=== PATIENT | female | born 1990 | race Caucasian/White ===

== ENCOUNTER 2019-10-08 10:59 | Outpatient (CLI) | payer OTHER, SELFPAY ==
--- NOTE | ~2019-10-08 | US_ITS ---
EXAMINATION: US OB <=14 wk fetus w TV DATE: 10/08/2019 11:58 INDICATION: Bleeding during first trimester . TECHNIQUE: Real-time pelvic ultrasound utilizing both a transvaginal and transabdominal probe was pe rformed. The interpreting radiologist was not present for the study. COMPARISON: None. FINDINGS: The uterus measures 8.6 x 6.6 x 7.9 cm. There is an intrauterine gestational sac. A yolk sac and fet al pole are identified. The crown rump length measures 3.4 cm, which correlates with an estimated ges tational age of 10 weeks and 2 days. No evident motion on cine grayscale imaging or by color or M-mode Doppler consistent with demise. The right ovary measures 1.7 x 2.4 x 1.4 cm. The left ovary measures 3.2 x 2.6 x 2.5 cm. Simple appea ring anechoic 2.1 cm left ovarian cyst. Normal vascular flow with arterial and venous waveforms at evgeny th ovaries on color Doppler. There is no free fluid in the pelvis. IMPRESSION: 1. Single fetus with crown-rump length of 3.4 cm with no motion on grayscale or color Doppler i maging consistent with demise. 2. Gestational age by ultrasound of 10 weeks 2 day(s) +/- 6 day(s). Reviewed, dictated and finalized at location A. CLOSURE CLERK IMPRESSION: 1. Single fetus with crown-rump length of 3.4 cm with no motion on graysc dave or color Doppler imaging consistent with demise. 2. Gestational age by ultrasound of 10 weeks 2 day(s) +/- 6 day(s).
== END 2019-10-08 11:00 | disposition home or self-care (01) ==
LOC: ANHIMG 11:03
PROVIDERS: Visit Provider Student in an Organized Health Care Education/Training Program
DX: O26.851 Spotting complicating pregnancy, first trimester (principal); Z3A.10 10 weeks gestation of pregnancy
CPT/HCPCS: 76801; 76817

== ENCOUNTER 2019-10-14 01:10 | Day surgery (SDC) | payer OTHER, SELFPAY ==
[2019-10-11 13:20] VITALS: BMI 29.4
[2019-10-14 08:15] VITALS: BP 142/95; PULSE 82; RESP 16; TEMP 36.4; O2SAT 100
--- NOTE | 2019-10-14 08:45 | ECG_ITS ---
Measurements Intervals [place] Rate: 71 P: 30 CO: 168 QRS: 21 QRSD: 97 T: 29 QT: 338 QTc: 368 Interpretive Statements SINUS RHYTHM WITH SINUS ARRHYTHMIA NORMAL ECG Electronically Signed On 10-14-2019 9:47:04 CHILD DEVELOPMENT PROFESSOR by Modesto Venegas D.O.
--- NOTE | 2019-10-14 08:52 | PM.HPGS ---
History of Present Illness History of Present Illness Consent: Risks, benefits, and alternatives have been discussed and questions answered. Patient agrees to proceed with procedure. Chief complaint: Missed Ab Narrative: Nohemi Call is a 29 year old female who presents for suction D&C for spontaneous AB. Pt presented to NOB appointment and we were unable to identify FHT by bedside doppler. She was sent for pelvic US which confirmed intrauterine with no cardiac activity. IUP measured approximately 10w size. She denies any vaginal bleeding or cramping. Review of Systems Review of Systems: All systems reviewed & are unremarkable except as noted in HPI and below Meds Home Medications and Allergies Home Medications Medication Instructions Recorded Confirmed Type nifedipine 60 mg PO DAILY 10/11/19 10/11/19 History Allergies Allergy/AdvReac Type Severity Reaction Status Date / Time No Known Allergies Allergy Unverified 10/11/19 13:20 Exam Const: General: comfortable and no acute distress Resp: Effort & Inspection: normal respiratory effort Auscultation: clear to auscultation bilaterally Cardio: Rate: regular rate Rhythm: regular rhythm GI: Inspection: non-distended GI Palp: Yes Soft to palpation, No Tenderness to palpation present (GI) and No Guarding due to palpation present (GI) Auscultation: normal bowel sounds : External Female Exam: normal external appearance Speculum Exam - Vagina: normal appearance of the vagina Speculum Exam - Cervix: normal appearance of the cervix, Cervical os closed, Abnormal cervical discharge present and nontender Bimanual exam- vagina & uterus: normal bimanual exam and non-tender Bimanual Exam- Adnexa, other: normal adnexae OB/external & speculum: no bleeding Skin: General skin exam: normal color Neuro: General: gait normal Speech: normal speech Extrem: General: normal to inspection Psych: Mental Status: mental status grossly normal Affect: normal affect Assessment and Plan Assessment and plan (1) Spontaneous : Code(s): O03.9 - Complete or unspecified spontaneous without complication Status: Acute Assessment and Plan: demise diagnosed by pelvic US IUP measuring 10w discussed management options with patient including but not limited to, expectant vs medical vs surgical management pt opted for surgical management, risks and benefits discussed Rh + will plan for suction D&C
[2019-10-14] MEDS: LACTATED RINGERS 1,000 ML 30 ML IV CONT (09:05)
--- NOTE | 2019-10-14 09:11 | WPDANESEPPF ---
Anes - Initial Pre Proc Eval Procedure: Operation Date: 10/14/19 10:15 Proposed Procedures p Suction Dilation and Curettage - Hilton Jorge MD Date/Time: 10/14/19 09:11 Surgeon: Hilton Jorge MD Pre Op Diagnosis: Missed Ab Patient Data Age: 29 Gender: F Height: 5 ft 7 in Weight: 85.28 kg Allergies Allergy/AdvReac Type Severity Reaction Status Date / Time No Known Allergies Allergy Unverified 10/11/19 13:20 Home Medications Medication Instructions Recorded Confirmed Type nifedipine 60 mg PO DAILY 10/11/19 10/11/19 History Patient hx anesthesia problems: none Family hx anesthesia problems: none [facility] Past Medical History Medical History (Updated 10/14/19 @ 09:11 by Brandon Antonio MD) HTN (hypertension) Surgical History Surgical History (Updated 10/14/19 @ 09:11 by Brandon Antonio MD) Hx of tonsillectomy Anes - Eval Final PreProcedure Day of Procedure 10/14/19 09:11 Patient weight: obese Heart: regular rate and rhythm Lungs: clear to auscultation Airway: Mallampati scale class II Neurological: alert and oriented Last oral intake: >/= 8 hours ASA classification: II Emergent: no Anesthetic plan: proceed Anesthesia type and monitoring: general GIVS and standard monitoring Informed Consent: The patient's anesthetic plan and its attendant risks and benefits were discussed with the patient/family/POA. Questions were solicited and answers provided to the satisfaction of the patient/family/POA.
[2019-10-14] MEDS: IBUPROFEN IV 800 MG/200 ML 800 MG/200 ML BAG 400 MG IVPB (10:03)
[2019-10-14 10:22] VITALS: BP 112/73; PULSE 85; RESP 18; O2SAT 100
--- NOTE | 2019-10-14 10:32 | P.OP_ITS ---
Procedure Note - Detailed Date of procedure: 10/14/19 Pre-op diagnosis: Missed Ab Post-op diagnosis: same Procedure performed: Suction dilation and curettage Description of procedure: Antibiotics: Doxycycline Findings: uterus equal to dates, cervix not dilated, intrauterine MAB Complications: none Specimens: endometrial contents- products of conception EBL: 150 mL Indications: Patients was found to have an intrauterine MAB on pelvic US. After one week of expectant management the patient had not passed and POC. She elected for surgical management via Suction D&C. Procedure: The patient was taken to the operating room after a missed had been noted on on transvaginal ultrasound. The risks, benefits and alternatives of the procedure were reviewed with the patient and informed consent was obtained. The patient was jose en to the OR and anesthesia was noted to be adequate. The patient was placed in the dorsolithotomy position. Pelvic exam was performed with findings noted above. The patient was prepped and draped in the usual sterile fashion. Rae retractors were placed anteriorly and posteriorly in the vagina and the cervix was grasped with an Tenaculum clamp. A pericervical block was performed with 1% lidocaine. The cervix was dilated further to allow for passage of a 8mm suction curette. The 8mm suction curette was gently advanced to the fundus, suction was activated, and the tip was rotated while being withdrawn to clear the uterus of products. This suction process was repeated 4 additional times due to the quantity of material in the uterus. The sharp curette was introduced and advanced to the fundus to remove any remaining products. The suction curette was reintroduced one final time to ensure all products had been removed. The Tenaculum clamp was removed. Good hemostasis was noted. Instrument, sponge, and sharp counts were correct. Patient tolerated the procedure well and was taken to the recovery room in stable condition. Surgeon: Hilton Jorge MD
[2019-10-14 10:50] VITALS: BP 120/77; PULSE 64; RESP 14
[2019-10-14] MEDS: DOXYCYCLINE HYCLATE 100 MG TABLET 200 MG PO (11:10)
[2019-10-14 11:20] VITALS: BP 120/76; PULSE 65; RESP 14
== END 2019-10-14 11:27 | disposition home or self-care (01) ==
PROVIDERS: Visit Provider Student in an Organized Health Care Education/Training Program
PROC: (CPT 59820; principal; 2019-10-14 10:15)
DX: O02.1 Missed abortion (principal); I10 Essential (primary) hypertension; E66.9 Obesity, unspecified; Z68.29 Body mass index [BMI] 29.0-29.9, adult
CPT/HCPCS: 59820; 88305; 93005; A9270; J1100; J1741; J2250; J2405; J2704; J3010; J7120

== ENCOUNTER 2020-07-26 10:09 | Emergency (ER) | payer OTHER, SELFPAY ==
--- NOTE | ~2020-07-26 | XR_ITS ---
XR ankle RT min 3V 07/26/2020 10:44 INDICATION: Right ankle pain PROCEDURE: 4 views right ankle COMPARISON: No prior studies for comparison. FINDINGS: Fracture, dislocation or subluxation is not identified. There is a bone island in the dista l aspect of the tibia. The soft tissues appear within normal limits. No foreign bodies are identifie d. IMPRESSION: 1: NO ACUTE BONE OR JOINT ABNORMALITY IDENTIFIED. Reviewed, dictated and finalized at location A. OGICS SPECIALIST
[2020-07-26 10:20] VITALS: BP 152/97; PULSE 70; RESP 18; TEMP 36.4; O2SAT 100
--- NOTE | 2020-07-26 10:37 | ED.GENADULT ---
HPI - General Adult General Chief complaint: Extremity Injury, Lower Stated complaint: ankle injury Time Seen by Provider: 07/26/20 10:27 Source: patient History of Present Illness HPI narrative: Patient is a 30 y/o female complaining of right ankle pain since yesterday. She states that she was working on a project with her and a wheelbarrow fell on her right ankle. She rates her pain as 8/10. Her pain is throbbing with no radiation. Walking makes the pain worse. Related Data Home Medications Medication Instructions Recorded Confirmed nifedipine 60 mg PO DAILY 10/11/19 10/14/19 Allergies Allergy/AdvReac Type Severity Reaction Status Date / Time No Known Allergies Allergy Unverified 10/14/19 09:21 Review of Systems Constitutional: Constitutional: Denies chills, Denies fever(s), Denies headache(s) and Denies weakness Eyes: Eyes: Denies blurry vision ENT: Denies headache(s) and Denies neck pain Cardiovascular: Cardiovascular: Denies chest pain and Denies dyspnea Respiratory: Respiratory: Denies cough and Denies dyspnea Gastrointestinal: Gastrointestinal: Denies abdominal pain, Denies diarrhea, Denies nausea and Denies vomiting Genitourinary: Genitourinary: Denies hematuria and Denies dysuria Musculoskeletal: Musculoskeletal: Denies back pain, Reports arthralgias (right ankle pain) and Denies neck pain Neurologic: Denies headache(s) and Denies weakness PMFSH Past Medical History Medical History HTN (hypertension) Surgical History Surgical History Hx of tonsillectomy Exam Const: General: no acute distress and well developed Orientation/consciousness: oriented to person, oriented to place, oriented to time and patient oriented x3 HENMT: Head: normocephalic Ears: external ears normal General nose exam: Normal external nose present Eyes: General: appearance normal, both eyes and all related structures Conjunctivae: conjunctivae normal Neck: Neck: normal visual inspection and full ROM Chest: Chest palpation & inspection: normal inspection of the chest and no tenderness Resp: Effort & Inspection: normal respiratory effort Auscultation: clear to auscultation bilaterally Cardio: Rate: regular rate Rhythm: regular rhythm GI: GI Palp: No abdominal tenderness and Yes Soft to palpation Skin: General skin exam: normal color and turgor normal Trauma: abrasion (lateral aspect of right ankle) Neuro: General: oriented to person, oriented to place, oriented to time and patient oriented x3 Cognition (Neuro): normal cognition Extrem: General: normal to inspection, full ROM and no pedal edema Right lower extremity: ankle Details: tenderness (right lateral maleolus) Psych: Appearance: grossly normal Mental Status: mental status grossly normal Affect: normal affect Course Vital Signs Vital signs: Vital Signs Temperature 36.4 C 07/26/20 10:20 Pulse Rate 70 07/26/20 10:20 Respiratory Rate 18 07/26/20 10:20 Blood Pressure 152/97 H 07/26/20 10:20 Pulse Oximetry 100 07/26/20 10:20 Temperature 36.4 C 07/26/20 10:20 Pulse Rate 70 07/26/20 10:20 Respiratory Rate 18 07/26/20 10:20 Blood Pressure 152/97 H 07/26/20 10:20 Pulse Oximetry 100 07/26/20 10:20 Medical Decision Making Vital Signs Vital Signs: Vital Signs Temperature 36.4 C 07/26/20 10:20 Pulse Rate 70 07/26/20 10:20 Respiratory Rate 18 07/26/20 10:20 Blood Pressure 152/97 H 07/26/20 10:20 Pulse Oximetry 100 07/26/20 10:20 Temperature 36.4 C 07/26/20 10:20 Pulse Rate 70 07/26/20 10:20 Respiratory Rate 18 07/26/20 10:20 Blood Pressure 152/97 H 07/26/20 10:20 Pulse Oximetry 100 07/26/20 10:20 Discharge Plan Discharge Clinical Impression: Contusion of ankle, right Qualifiers: Encounter type: initial encounter Qualified Code(s): S90.01XA - Contusion of
[2020-07-26] MEDS: TETANUS,DIPHTHERIA,AC PERTUSSIS ADULT (0.5 ML) BOOSTRIX IM (10:51)
== END 2020-07-26 11:33 | disposition home or self-care (01) ==
PROVIDERS: Emergency Provider Emergency Medicine; PCP Nurse Practitioner Family
DX: S90.01XA Contusion of right ankle, initial encounter (principal); S90.511A Abrasion, right ankle, initial encounter; Z23 Encounter for immunization; W20.8XXA Other cause of strike by thrown, projected or falling object, initial encounter
CPT/HCPCS: 73140; 73610; 90471; 90715; 99283

== ENCOUNTER 2021-09-25 11:05 | Emergency (ER) | payer OTHER, SELFPAY ==
--- NOTE | ~2021-09-25 | US_ITS ---
EXAMINATION: US OB <=14 wk fetus w TV DATE: 09/25/2021 12:22 INDICATION: Vaginal bleeding. . TECHNIQUE: Real-time transabdominal and transvaginal obstetric ultrasound. FINDINGS: No prior studies for comparison. The uterus measures 9.1 x 5.4 x 6.1 cm. There is an intrauterine gestational sac, with pole jorge alberto ntified. There is a small subchorionic hemorrhage measuring 5 x 3 x 3 mm The crown rump length measur es 0.36 cm, which correlates with a estimated gestational age of 6 weeks 0 days. heart tones are identified measuring 95 bpm. There is a corpus luteal cyst of the right ovary measuring 2.5 cm. IMPRESSION: 1. SL IUP with an EGA of 6 weeks, 0 days (EDC by current ultrasound of 05/21/2022). 2: Small subchorionic hemorrhage. 3: Small corpus luteal cyst of the right ovary measuring 2.5 cm. Reviewed, dictated and finalized at location A. COST ESTIMATOR IMPRESSION: 1. SL IUP with an EGA of 6 weeks, 0 days (EDC by current ultrasound of 05/21/20). 2: Small subchorionic hemorrhage. 3: Small corpus luteal cyst of the right ovary measuring 2.5 cm.
[2021-09-25 11:15] VITALS: BP 152/103; PULSE 110; RESP 16; TEMP 36.4; O2SAT 99
--- NOTE | 2021-09-25 11:43 | ED.PREGNANCY ---
HPI - General Chief complaint: Vaginal Bleeding <JENNI Howard Last Filed: 09/25/21 14:42> Stated complaint: vag bleed <JENNI Howard Last Filed: 09/25/21 14:42> Time Seen by Provider: 09/25/21 11:19 <JENNI Howard Last Filed: 09/25/21 14:42> Source: patient <JENNI Howard Last Filed: 09/25/21 14:42> Mode of arrival: ambulatory <JENNI Howard Last Filed: 09/25/21 14:42> Limitations: no limitations <JENNI Howard Last Filed: 09/25/21 14:42> History of Present Illness HPI Narrative: This is a 31-year-old G3, P1 about 8 weeks by LMP that presents to the emergency department for vaginal spotting. Reports she started to have some cramping and noted a little spotting today. She has history of miscarriage which concerned her and prompted her to be seen. She also has history of hypertension and has been on losartan for this. She has not been taking this medication since she found out she was . She has also been having a lot of trouble with nausea and vomiting this . Denies fever or dysuria. <Lynnette Haynes PA-C - Last Filed: 09/25/21 14:42> Related Data Home medications: Home Medications Medication Instructions Recorded Confirmed ondansetron HCl [Zofran] 09/25/21 <JENNI Howard Last Filed: 09/25/21 14:42> Allergies/Adverse reactions: Allergies Allergy/AdvReac Type Severity Reaction Status Date / Time No Known Allergies Allergy Verified 09/25/21 11:28 <JENNI Howard Last Filed: 09/25/21 14:42> Review of Systems Review of Systems: CONSTITUTIONAL: Denies fever GASTROINTESTINAL: Reports pelvic cramping, nausea, vomiting GENITOURINARY: Denies dysuria <JENNI Howard Last Filed: 09/25/21 14:42> All systems reviewed & are unremarkable except as noted in HPI and below <Lynnette Haynes PA-C - Last Filed: 09/25/21 14:42> [facility] Past Medical History Medical History: Medical History HTN (hypertension) <Lynnette Haynes PA-C - Last Filed: 09/25/21 14:42> Surgical History Surgical History: Surgical History Hx of tonsillectomy <Lynnette Haynes PA-C - Last Filed: 09/25/21 14:42> Social History Social History: Social History (Updated 09/25/21 @ 11:46 by Lynnette Haynes PA-C) Smoking status: Never smoker <Lynnette Haynes PA-C - Last Filed: 09/25/21 14:42> Exam Narrative: GENERAL: Well-appearing, well-nourished, and in no acute distress. HEAD: Normocephalic, atraumatic. EYES: EOMI. CHEST: Clear to auscultation. No respiratory distress. No wheezes rales or rhonchi HEART: Regular rate and rhythm. No murmur heard. Normal peripheral pulses. ABDOMEN: Soft, nontender, nondistended, normal active bowel sounds. EXTREMITIES: Normal range of motion. No edema. SKIN: Warm, dry, no rash. NEURO: No focal deficits. Alert and oriented x3. PSYCH: Normal mood and affect PELVIC: Normal external genitalia. No bleeding noted on speculum exam. Normal appearing cervix <Lynnette Haynes PA-C - Last Filed: 09/25/21 14:42> Course ALARM ADJUSTER/PA Physician Supervision I did not see this patient nor was the care plan discussed with me. I was available for evaluation and consultation, I agree with the documentation <Huber Bedolla MD - Last Filed: 09/25/21 18:19> Consultations Consultation #1: Spoke with Dr. Burden about patient and workup. Patient will be re-started on Procardia. Monitor blood pressure at home and follow up in clinic next week. <Lynnette Haynes PA-C - Last Filed: 09/25/21 14:42> Date: 09/25/21 <Lynnette Haynes PA-C - Last Filed: 09/25/21 14:42> Time: 14:33 <Lynnette Haynes PA-C - Last Filed: 09/25/21 14:42> Vital Signs Vital signs: Vital Signs Temperature 36.4 C 09/25/21 11:15 Pulse Rate 110
[2021-09-25 11:48] LABS: Basophils Percent Auto 0.2 % (0.2-1.2); Eosinophils Percent Auto 0.3 % (0-4.4); Hematocrit 39.7 % (37.0-47.0); Hemoglobin 12.7 g/dL (12.0-15.0); Immature Granulocyte Absolute 0.02 K/mm3 (0.00-0.031); Immature Granulocyte Percent A 0.2 % (0-0.5); Lymphocytes Absolute Auto 1.78 K/mm3 (0.9-3.2); Lymphocytes Percent Auto 19.2 % (18.3-44.2); Mean Corpuscular Hemoglobin 28.3 pg (26-34); Mean Corpuscular Volume 88.6 fl (80-100); Mean Platelet Volume 9.6 fl (7.4-10.4); Monocytes Absolute Auto 0.6 K/mm3 (0.1-0.6); Monocytes Percent Auto 6.3 % (2.6-8.5); Neutrophils Absolute Auto 6.8 K/mm3 (1.3-6.7); Neutrophils Percent Auto 73.8 % (45.5-73.1); Platelet Count Result 271 k/mm3 (150-375); Red Blood Count 4.48 M/mm3 (4.2-5.4); Red Cell Distribution Width 12.9 % (11.5-14.5); White Blood Count 9.3 K/mm3 (4.5-10.0)
[2021-09-25 12:04] LABS: Alanine Aminotransferase 13 U/L (4-35); Albumin Level 5.1 g/dL (3.5-5.1); Alkaline Phosphatase 58 U/L (38-126); Anion Gap 10 mmol/L (8-16); Aspartate Amino Transferase 22 U/L (14-36); Bilirubin,Total 0.6 mg/dL (0.2-1.3); Blood Urea Nitrogen 11 mg/dL (7-17); Calcium 9.7 mg/dL (8.4-10.2); Carbon Dioxide 23 mmol/L (22-30); Chloride 102 mmol/L (98-107); Estimated CRCL calculation 167 ml/min; Estimated Glomerular Filt Rate > 60; Glucose 90 mg/dL (65-110); Lipase 55 U/L (23-300); Potassium 3.6 mmol/L (3.4-5.0); Sodium 135 mmol/L (137-145)
[2021-09-25 12:16] LABS: Add Urine Microscopic? YES; Appearance Urine Clear (Clear); Bacteria Urine Trace /hpf; Bilirubin Urine Negative (Negative); Blood Urine 2+ (Negative); Color Urine Yellow (Yellow); Glucose Urine UA Negative (Negative); Ketones Urine 1+ mg/dL (Negative); Leukocyte Esterase Ur 2+ LEU/UL (Negative); Mucus Urine Heavy /lpf; Nitrate Urine Negative (Negative); Protein Urine 1+ mg/dL (Negative); Squamous Epithelial Cell Urine Many /hpf (Few); WBC Urine 16-20 /hpf
[2021-09-25 12:17] LABS: Specific Grav Ur 1.032 (1.001-1.035)
[2021-09-25] MEDS: SODIUM CHLORIDE 0.9% IV 1,000 ML 999 ML IV CONT (12:17)
[2021-09-25 13:30] VITALS: BP 153/106; PULSE 85; RESP 16; O2SAT 100
[2021-09-25] MEDS: ONDANSETRON INJ 4 MG/2 ML VIAL IV PUSH (13:35)
== END 2021-09-25 14:45 | disposition home or self-care (01) ==
PROVIDERS: Physician Assistant; Emergency Provider Emergency Medicine; PCP Nurse Practitioner Family
DX: O46.8X1 Other antepartum hemorrhage, first trimester (principal); O21.9 Vomiting of pregnancy, unspecified; O34.81 Maternal care for other abnormalities of pelvic organs, first trimester; N83.11 Corpus luteum cyst of right ovary; O10.911 Unspecified pre-existing hypertension complicating pregnancy, first trimester; Z3A.01 Less than 8 weeks gestation of pregnancy
CPT/HCPCS: 36415; 76801; 76817; 80053; 81001; 81025; 83690; 84702; 85025; 85461; 87086; 87088; 96361; 96374; 99284; J2405; J7030

== ENCOUNTER 2021-09-28 16:52 | Emergency (ER) | payer OTHER, SELFPAY ==
[2021-09-28 16:59] VITALS: BP 154/93; PULSE 88; RESP 14; TEMP 36.9; O2SAT 100
[2021-09-28 18:01] LABS: Basophils Percent Auto 0.3 % (0.2-1.2); Eosinophils Percent Auto 0.4 % (0-4.4); Hematocrit 40.8 % (37.0-47.0); Hemoglobin 13.2 g/dL (12.0-15.0); Immature Granulocyte Absolute 0.04 K/mm3 (0.00-0.031); Immature Granulocyte Percent A 0.4 % (0-0.5); Lymphocytes Absolute Auto 2.13 K/mm3 (0.9-3.2); Lymphocytes Percent Auto 19.5 % (18.3-44.2); Mean Corpuscular HGB Conc 32.4 g/dl (32-36); Mean Corpuscular Hemoglobin 28.9 pg (26-34); Mean Corpuscular Volume 89.3 fl (80-100); Mean Platelet Volume 9.5 fl (7.4-10.4); Monocytes Absolute Auto 0.8 K/mm3 (0.1-0.6); Monocytes Percent Auto 7.2 % (2.6-8.5); Neutrophils Absolute Auto 7.9 K/mm3 (1.3-6.7); Neutrophils Percent Auto 72.2 % (45.5-73.1); Platelet Count Result 297 k/mm3 (150-375); Red Blood Count 4.57 M/mm3 (4.2-5.4); Red Cell Distribution Width 12.8 % (11.5-14.5); White Blood Count 10.9 K/mm3 (4.5-10.0)
[2021-09-28 18:11] LABS: Alanine Aminotransferase 12 U/L (4-35); Albumin Level 5.1 g/dL (3.5-5.1); Alkaline Phosphatase 62 U/L (38-126); Anion Gap 14 mmol/L (8-16); Aspartate Amino Transferase 23 U/L (14-36); Bilirubin,Total 0.5 mg/dL (0.2-1.3); Blood Urea Nitrogen 8 mg/dL (7-17); Calcium 9.9 mg/dL (8.4-10.2); Carbon Dioxide 24 mmol/L (22-30); Chloride 98 mmol/L (98-107); Estimated CRCL calculation 165 ml/min; Estimated Glomerular Filt Rate > 60; Glucose 96 mg/dL (65-110); Lipase 39 U/L (23-300); Potassium 3.8 mmol/L (3.4-5.0); Sodium 136 mmol/L (137-145)
[2021-09-28 18:38] LABS: Add Urine Microscopic? YES; Appearance Urine Clear (Clear); Bacteria Urine Trace /hpf; Bilirubin Urine Negative (Negative); Blood Urine Negative (Negative); Color Urine Yellow (Yellow); Glucose Urine UA Negative (Negative); Ketones Urine 1+ mg/dL (Negative); Leukocyte Esterase Ur 1+ LEU/UL (Negative); Mucus Urine Heavy /lpf; Nitrate Urine Negative (Negative); Protein Urine 1+ mg/dL (Negative); Specific Grav Ur 1.023 (1.001-1.035); Squamous Epithelial Cell Urine Many /hpf (Few)
--- NOTE | 2021-09-28 19:37 | ED.GENADULT ---
HPI - General Adult General Chief complaint: Nausea/Vomiting/Diarrhea Stated complaint: 6 weeks /vomiting Time Seen by Provider: 09/28/21 17:44 Source: patient Mode of arrival: ambulatory Limitations: no limitations History of Present Illness HPI narrative: Patient presents for evaluation of nausea and vomiting. She is currently approximately 6 weeks gestation. She is already had a confirmed IUP per ultrasound during this . G3, P1. She was seen here on 09/25/2021 for vaginal spotting. Her IUP was detected on ultrasound during that ER stay. Also showed a subchorionic hemorrhage and right-sided ovarian cyst. She states that her spotting has resolved since her visit here. She has no abdominal pain or cramping. Blood type AB+. She states she has been taking Zofran, Reglan, B6, Unisom without improvement in her symptoms. She has not had her first OBGYN visit during this . Of note she tested positive for Covid on 08/22/2021. She did receive both doses of her COVID vaccine but did not receive the booster. She has not received a flu vaccination this year. No recent sick contacts to her knowledge. No EtOH or marijuana use. She is a chronic clear vaginal discharge which is unchanged. She did have a pelvic exam performed during her last ER visit here. She is in a sexual monogamous relationship with her . He is asymptomatic. No fever, chills, urinary symptoms. Documentation from ER stay on 09/25/2021 indicated that questionable UTI on urinalysis, although likely contaminated. Plan was to start her on Macrobid. She dictates she did not know she had that prescription available for her. She denies any urinary symptoms. Of note she has a history of hypertension is typically on losartan. However treating provider that saw her here on 09/25/2021 contacted FLIGHT SIMULATOR TEACHER, Dr. Burden, who changed her to Procardia. She states she has not been able to keep the medication down. Bowel pattern is unchanged. Last bowel movement was this morning, solid in consistency, without the presence of blood or mucus in the stool. Related Data Allergies Allergy/AdvReac Type Severity Reaction Status Date / Time No Known Allergies Allergy Verified 09/28/21 17:46 Review of Systems Review of Systems: CONSTITUTIONAL: Denies fever, chills, or sweats. EYES: Denies visual changes, redness, or discharge. ENT: Denies rhinorrhea, congestion, sore throat, or otalgia. CARDIOVASCULAR: Denies chest pain, palpitations, or edema. RESPIRATORY: Denies cough or dyspnea. GASTROINTESTINAL: Reports nausea and vomiting. Denies abdominal pain, diarrhea, constipation. GENITOURINARY: Denies dysuria or hematuria. SKIN: Denies rash or itching. MUSCULOSKELETAL: Denies back pain, joint pain, or myalgia. NEUROLOGIC: Denies headache, numbness, dizziness, or weakness. PSYCHIATRIC: Denies anxiety or depression. [facility] Past Medical History Medical History HTN (hypertension) Surgical History Surgical History Hx of tonsillectomy Family History Family History Mother Hypertension Thyroid cancer Social History Social History Smoking status: Former smoker Substance use: never Living arrangements: with family Gender identity (if verbalized by the patient): Female Sexual Orientation (if Verbalized by the Patient): Straight or Heterosexual Spiritual care concerns: No Exam Narrative: GENERAL: Well-appearing, well-nourished, and in no acute distress. HEAD: Normocephalic, atraumatic. EYES: PERRLA and EOMI. ENT: Nares clear, no rhinorrhea or epistaxis. Mucous membranes moist. Oropharynx without tonsillar hypertrophy exudate or other lesions. Bilateral TMs pearly gant nonbulging NECK: Supple. No adenopathy or m
[2021-09-28 19:38] VITALS: BP 151/91; PULSE 88; RESP 18; O2SAT 100
[2021-09-28] MEDS: LACTATED RINGERS 1,000 ML 999 ML IV CONT ×2 (19:39→20:53)
[2021-09-28] MEDS: ONDANSETRON INJ 4 MG/2 ML VIAL IV PUSH (19:39)
[2021-09-28] MEDS: FAMOTIDINE 20 MG/2 ML VIAL IV PUSH (19:45)
[2021-09-28 20:23] LABS: SARS-CoV-2 RNA PCR Positive
[2021-09-28] MEDS: diphenhydrAMINE HCl INJ 50 MG/ML VIAL 25 MG IV PUSH (20:53)
[2021-09-28] MEDS: METOCLOPRAMIDE HCL INJ 10 MG/2 ML VIAL IV PUSH (20:53)
== END 2021-09-28 22:01 | disposition home or self-care (01) ==
PROVIDERS: Emergency Medicine; Emergency Provider Nurse Practitioner; PCP Nurse Practitioner Family
DX: O98.511 Other viral diseases complicating pregnancy, first trimester (principal); U07.1 COVID-19; O21.9 Vomiting of pregnancy, unspecified; O10.911 Unspecified pre-existing hypertension complicating pregnancy, first trimester; Z87.891 Personal history of nicotine dependence; Z86.16 Personal history of COVID-19; Z3A.01 Less than 8 weeks gestation of pregnancy
CPT/HCPCS: 36415; 80053; 81001; 83690; 85025; 87086; 87804; 96361; 96374; 96375; 99284; C9803; J1200; J2405; J2765; J7120; U0003; U0005

== ENCOUNTER 2021-10-01 11:56 | Observation (INO) | payer OTHER, SELFPAY ==
--- NOTE | ~2021-10-01 | US_ITS ---
EXAMINATION: US OB <= 14 weeks fetus DATE: 10/01/2021 16:35 INDICATION: Uncertain dates. Nausea and vomiting. TECHNIQUE: Real-time transabdominal pelvic ultrasound was performed. COMPARISON: Ultrasound 09/25/2021 FINDINGS: The uterus measures 8.8 x 6.2 x 6.4 cm. There is an intrauterine gestational sac. A yolk sac is ident ified. The crown rump length measures 7 mm, which correlates with an estimated gestational age of 6 weeks and 4 day(s) (+/-) 4 day(s). heart motion is identified measuring 131 beats per min conrad (bpm) by M-mode Doppler. The right ovary measures 2.6 x 2.4 x 1.6 cm. There is a small subchorion ic hematoma. The left ovary measures 2.0 x 1.3 x 1.6 cm. There is no free fluid in the pelvis. IMPRESSION: 1. Single living intrauterine gestation with estimated date of delivery of 05/21/2022 based on the ul trasound from 09/25/2021. 2. Small subchorionic hematoma. Reviewed, dictated and finalized at location E. PRODUCTION ARTIST IMPRESSION: 1. Single living intrauterine gestation with estimated date of delivery of 05/21/2022 based on the ultrasound from 09/25/2021. 2. Small subchorionic hematoma.
[2021-10-01 13:25] LABS: Basophils Percent Auto 0.2 % (0.2-1.2); Eosinophils Percent Auto 0.2 % (0-4.4); Hemoglobin 12.9 g/dL (12.0-15.0); Immature Granulocyte Absolute 0.06 K/mm3 (0.00-0.031); Immature Granulocyte Percent A 0.5 % (0-0.5); Lymphocytes Absolute Auto 1.84 K/mm3 (0.9-3.2); Lymphocytes Percent Auto 13.8 % (18.3-44.2); Mean Corpuscular HGB Conc 33.9 g/dl (32-36); Mean Corpuscular Hemoglobin 29.4 pg (26-34); Mean Corpuscular Volume 86.6 fl (80-100); Mean Platelet Volume 9.4 fl (7.4-10.4); Monocytes Absolute Auto 0.9 K/mm3 (0.1-0.6); Monocytes Percent Auto 6.8 % (2.6-8.5); Neutrophils Absolute Auto 10.5 K/mm3 (1.3-6.7); Neutrophils Percent Auto 78.5 % (45.5-73.1); Platelet Count Result 271 k/mm3 (150-375); Red Blood Count 4.39 M/mm3 (4.2-5.4); Red Cell Distribution Width 12.6 % (11.5-14.5); White Blood Count 13.3 K/mm3 (4.5-10.0)
[2021-10-01] MEDS: ONDANSETRON INJ 4 MG/2 ML VIAL IV PUSH ×2 (13:30→19:23)
[2021-10-01 13:31] LABS: Add Urine Microscopic? YES; Appearance Urine Cloudy (Clear); Bilirubin Urine Negative (Negative); Blood Urine Negative (Negative); Color Urine Yellow (Yellow); Glucose Urine UA Negative (Negative); Ketones Urine 2+ mg/dL (Negative); Leukocyte Esterase Ur 2+ LEU/UL (Negative); Mucus Urine Heavy /lpf; Nitrate Urine Negative (Negative); Protein Urine 2+ mg/dL (Negative); Squamous Epithelial Cell Urine Many /hpf (Few); WBC Urine 16-20 /hpf
[2021-10-01 13:35] LABS: Specific Grav Ur 1.033 (1.001-1.035)
[2021-10-01 13:36] LABS: Alanine Aminotransferase 13 U/L (4-35); Alkaline Phosphatase 65 U/L (38-126); Anion Gap 14 mmol/L (8-16); Aspartate Amino Transferase 21 U/L (14-36); Bilirubin,Total 0.5 mg/dL (0.2-1.3); Blood Urea Nitrogen 10 mg/dL (7-17); Carbon Dioxide 20 mmol/L (22-30); Chloride 100 mmol/L (98-107); Estimated Glomerular Filt Rate > 60; Glucose 81 mg/dL (65-110); Potassium 3.8 mmol/L (3.4-5.0); Sodium 134 mmol/L (137-145)
[2021-10-01] MEDS: FAMOTIDINE 20 MG/2 ML VIAL IV PUSH (13:36)
[2021-10-01] MEDS: DEXTROSE 5%/0.45% SOD CHL 1,000 ML 150 ML IV CONT (13:38)
[2021-10-01 13:46] VITALS: BP 134/72; PULSE 89
[2021-10-01 14:01] VITALS: BP 124/68; PULSE 88
[2021-10-01 14:07] LABS: Thyroid Stimulating Hormone 0.089 uIU/mL (0.465-4.680)
[2021-10-01 14:16] VITALS: BP 129/76; PULSE 81
--- NOTE | 2021-10-01 15:50 | PC.NURSE ---
Maty Bach CNM in department. Updated on pt's status and lab results. New orders received.
--- NOTE | 2021-10-01 17:19 | OBADM ---
This patient, Nohemi Call, admitted to the OB room OB Post 113 for observation. Patient/family oriented to hospital policies and general routines including ID bracelet, bed and alarms, visiting hours, pain management, procedures, bathroom and other care routines, personal items, smoking policy, room service/diet, and visiting hours. Patient/Family are encouraged to report perceived risks to care and to ask questions if they do not understand what they are told or what they should do.
[2021-10-01 17:48] LABS: Total Triiodothyronine (T3) 1.21 NG/ML (0.97-1.69)
[2021-10-01] MEDS: LACTATED RINGERS 1,000 ML 125 ML IV CONT (17:49)
[2021-10-01 17:52] VITALS: BP 127/71; PULSE 76; PULSE 82; O2SAT 98; BMI 36.3
[2021-10-01 18:02] VITALS: TEMP 37.4
[2021-10-01 18:04] LABS: Free T4 Free Thyroxine 1.27 ng/mL (0.78-2.19)
[2021-10-02] VITALS (52 sets, daily range): BP systolic 108–139; BP diastolic 58–90; PULSE 58–100; RESP 14–18; TEMP 36.6; O2SAT 98–100
[2021-10-02] MEDS: DEXTROSE 5%/0.45% SOD CHL 1,000 ML 150 ML IV CONT (00:34)
[2021-10-02] MEDS: ONDANSETRON INJ 4 MG/2 ML VIAL IV PUSH ×3 (02:35→14:48)
[2021-10-02] MEDS: FAMOTIDINE 20 MG/2 ML VIAL IV PUSH (03:52)
--- NOTE | 2021-10-02 08:27 | PM.IMHP ---
H&P: HPI History of Present Illness Date/Time: 10/02/21 08:27 this patient is a 31-year-old multiparous female who presents for nausea vomiting of . She is about 6 week gestation. She has history of 1st trimester loss and this concerned about the status of the baby. She has severe nausea vomiting. She was admitted and observed and supportive care was administered with antiemetics IV fluids. Laboratory evaluation was normal. She denies any headaches or blurry vision. She denies any chest pain or shortness of breath. She denies any nausea, vomiting, fever, chills. Chief Complaint: Nausea vomiting Review of Systems Review of Systems: All systems reviewed & are unremarkable except as noted in HPI and below Constitutional: Constitutional: Denies chills, Denies fatigue, Denies fever(s) and Denies weakness Eyes: Eyes: Denies blurry vision, Denies change in vision, Denies loss of peripheral vision, Denies loss of vision, Denies other visual disturbances and Denies eye pain ENT: Denies vertigo, Denies dizziness, Denies hearing loss, Denies mouth pain, Denies nasal obstruction, Denies neck mass and Denies neck pain Cardiovascular: Cardiovascular: Denies chest pain, Denies diaphoresis, Denies syncope, Denies leg edema and Denies dyspnea Respiratory: Respiratory: Denies chest congestion, Denies cough, Denies hemoptysis, Denies dyspnea and Denies wheezing Gastrointestinal: Gastrointestinal: Denies abdominal pain, Denies constipation, Denies diarrhea, Denies nausea and Denies vomiting Genitourinary: Genitourinary: Denies hematuria, Denies change in libido, Denies nocturia, Denies genital lesions, Denies flank pain and Denies urinary urgency Musculoskeletal: Musculoskeletal: Denies abnormal gait, Denies back pain, Denies myalgias, Denies arthralgias, Denies joint swelling, Denies muscle weakness and Denies neck pain Integumentary/Breasts: Skin/Breast: Denies swelling, Denies breast pain, Denies breast mass, Denies dry skin, Denies nipple discharge, Denies unusual bruising and Denies jaundice Neurologic: Denies Neuro-related abnormal movements, Denies Abnormal speech present, Denies abnormal gait, Denies behavioral changes, Denies confusion, Denies vertigo, Denies dizziness, Denies syncope, Denies loss of vision, Denies memory loss, Denies convulsions and Denies weakness Psychiatric: Psychiatric: Denies abnormal sleep pattern, Denies behavioral changes, Denies change in libido, Denies confusion, Denies depression, Denies anhedonia and Denies memory loss Endocrine: Endocrine: Reports no additional endocrine complaints, Denies change in libido and Denies fatigue Hematologic/Lymphatic: Hematologic/Lymphatic: Reports no additional hematologic/lymphatic complaints Allergic/Immunologic: Allergic/Immunologic: Reports no additional allergic/immunologic complaints and Denies wheezing PMFSH Past Medical History Medical History HTN (hypertension) Surgical History Surgical History Hx of tonsillectomy Family History Family History Mother Hypertension Thyroid cancer Social History Social History Smoking status: Former smoker Substance use: never Gender identity (if verbalized by the patient): Female Sexual Orientation (if Verbalized by the Patient): Straight or Heterosexual Spiritual care concerns: No Meds Home Medications and Allergies Home Medications Medication Instructions Recorded Confirmed Type nifedipine [Procardia XL] 30 mg PO DAILY 14 Days #14 tablet 09/25/21 10/01/21 Rx ondansetron [Zofran ODT] 8 mg PO Q8H PRN 10/01/21 10/01/21 History pantoprazole [Protonix] 40 mg PO QAM #28 tablet 10/01/21 Rx Allergies Allergy/AdvReac Type Severity Reaction Status Date / Time
--- NOTE | 2021-10-02 10:30 | PC.NURSE ---
8773--Dr. Burden at bedside to discuss plan of care. Discharge plans in place.
--- NOTE | 2021-10-02 14:50 | PC.NURSE ---
1450--pt reports she is feeling good and is ready for discharge.
--- NOTE | 2021-10-02 15:48 | PC.NURSE ---
1520--Pt refuses next dose of Pepcid due to awaiting ride.
== END 2021-10-02 15:25 | disposition home or self-care (01) ==
PROVIDERS: Advanced Practice Midwife; Admitting Provider Obstetrics & Gynecology; PCP Nurse Practitioner Family; Visit Provider Obstetrics & Gynecology
DX: O21.9 Vomiting of pregnancy, unspecified (principal); O16.1 Unspecified maternal hypertension, first trimester; Z3A.01 Less than 8 weeks gestation of pregnancy; Z87.891 Personal history of nicotine dependence; Z79.899 Other long term (current) drug therapy
CPT/HCPCS: 36415; 76801; 80053; 81001; 84439; 84443; 84480; 85025; 87086; 96374; 96375; 96376; G0378; G0379; J2405; J7120

== ENCOUNTER 2021-11-03 12:25 | Emergency (ER) | payer OTHER, SELFPAY ==
[2021-11-03 12:28] VITALS: BP 140/87; PULSE 155; RESP 18; TEMP 36.5; O2SAT 100
[2021-11-03] MEDS: DEXTROSE 5%/LACTATED RINGERS 1,000 ML 150 ML IV CONT (13:03)
[2021-11-03 13:09] LABS: Basophils Percent Auto 0.2 % (0.2-1.2); Eosinophils Absolute Auto 0.1 K/mm3 (0-0.3); Eosinophils Percent Auto 0.4 % (0-4.4); Hematocrit 40.9 % (37.0-47.0); Hemoglobin 14.1 g/dL (12.0-15.0); Immature Granulocyte Absolute 0.05 K/mm3 (0.00-0.031); Immature Granulocyte Percent A 0.4 % (0-0.5); Lymphocytes Absolute Auto 1.91 K/mm3 (0.9-3.2); Lymphocytes Percent Auto 14.1 % (18.3-44.2); Mean Corpuscular HGB Conc 34.5 g/dl (32-36); Mean Corpuscular Hemoglobin 29.6 pg (26-34); Mean Corpuscular Volume 85.9 fl (80-100); Mean Platelet Volume 10.3 fl (7.4-10.4); Monocytes Absolute Auto 1.3 K/mm3 (0.1-0.6); Monocytes Percent Auto 9.3 % (2.6-8.5); Neutrophils Absolute Auto 10.3 K/mm3 (1.3-6.7); Neutrophils Percent Auto 75.6 % (45.5-73.1); Platelet Count Result 290 k/mm3 (150-375); Red Blood Count 4.76 M/mm3 (4.2-5.4); White Blood Count 13.6 K/mm3 (4.5-10.0)
[2021-11-03 13:38] LABS: Alanine Aminotransferase 91 U/L (4-35); Albumin Level 4.8 g/dL (3.5-5.1); Alkaline Phosphatase 71 U/L (38-126); Anion Gap 20 mmol/L (8-16); Aspartate Amino Transferase 75 U/L (14-36); Bilirubin,Total 1.6 mg/dL (0.2-1.3); Blood Urea Nitrogen 9 mg/dL (7-17); Calcium 10.1 mg/dL (8.4-10.2); Carbon Dioxide 16 mmol/L (22-30); Chloride 100 mmol/L (98-107); Estimated CRCL calculation 132 ml/min; Estimated Glomerular Filt Rate > 60; Glucose 111 mg/dL (65-110); Lipase 80 U/L (23-300); Potassium 3.5 mmol/L (3.4-5.0); Sodium 136 mmol/L (137-145)
[2021-11-03 14:30] LABS: Add Urine Microscopic? YES; Appearance Urine Cloudy (Clear); Bilirubin Urine Negative (Negative); Blood Urine Negative (Negative); Color Urine Amber (Yellow); Glucose Urine UA 1+ mg/dL (Negative); Hyaline Casts Urine 20-29 /lpf; Ketones Urine 2+ mg/dL (Negative); Leukocyte Esterase Ur Negative LEU/UL (Negative); Mucus Urine Rare /lpf; Nitrate Urine Negative (Negative); Protein Urine 2+ mg/dL (Negative); Specific Grav Ur 1.023 (1.001-1.035); Squamous Epithelial Cell Urine Many /hpf (Few)
[2021-11-03 14:52] VITALS: BP 113/92; PULSE 96; RESP 16; O2SAT 100
[2021-11-03] MEDS: ONDANSETRON INJ 4 MG/2 ML VIAL IV PUSH (15:47)
[2021-11-03] MEDS: SODIUM CHLORIDE 0.9% IV 1,000 ML 999 ML IV CONT (17:02)
--- NOTE | 2021-11-03 17:23 | ED.GENADULT ---
HPI - General Adult General Chief complaint: Nausea/Vomiting/Diarrhea Stated complaint: vomiting, 11 weeks Time Seen by Provider: 11/03/21 12:43 Source: patient and family Mode of arrival: ambulatory History of Present Illness HPI narrative: 31-year-old 2 para 1 about 11-1/2 weeks of gestation here with complaints of nausea, vomiting, feeling extremely weak for past 2 days. She states that Zofran is not helping with that nausea she denies any fever or chills denies any abdominal pain or vaginal discharge or bleeding. She endorses Dr. Mendez as her [employer]. Onset (ago): day(s) (2) Severity: similar to prior episodes Exacerbating factors: eating Associated symptoms: denies other symptoms Related Data Home Medications Medication Instructions Recorded Confirmed ondansetron 8 mg PO Q8H PRN 10/01/21 10/01/21 Allergies Allergy/AdvReac Type Severity Reaction Status Date / Time No Known Allergies Allergy Verified 11/03/21 12:39 Review of Systems Review of Systems: All systems reviewed & are unremarkable except as noted in HPI and below Constitutional: Constitutional: Reports no additional constitutional complaints Eyes: Eyes: Reports no additional eye complaints ENT: Reports system reviewed and no additional complaints, except as documented Cardiovascular: Cardiovascular: Reports no additional cardiovascular complaints Respiratory: Respiratory: Reports no additional respiratory complaints Gastrointestinal: Gastrointestinal: Reports as per HPI Musculoskeletal: Musculoskeletal: Reports no additional musculoskeletal complaints Integumentary/Breasts: Skin/Breast: Reports system reviewed and no additional complaints, except as docu PMFSH Past Medical History Medical History HTN (hypertension) Surgical History Surgical History Hx of tonsillectomy Family History Family History Mother Hypertension Thyroid cancer Social History Social History Smoking status: Former smoker Substance use: never Gender identity (if verbalized by the patient): Female Sexual Orientation (if Verbalized by the Patient): Straight or Heterosexual Spiritual care concerns: No Exam Narrative: GENERAL: Well-appearing, well-nourished, and in no acute distress. HEAD: Normocephalic, atraumatic. EYES: PERRLA and EOMI. Respiratory No respiratory distress. HEART: Regular rate and rhythm. No murmur heard. Normal peripheral pulses. ABDOMEN: Soft, nontender, nondistended, normal active bowel sounds. EXTREMITIES: Normal range of motion. No edema. SKIN: Warm, dry, no rash. NEURO: No focal deficits. Alert and oriented x3. PSYCH: Normal mood and affect. Course Course Emergency Course: With given history of now having repeated nausea and vomiting with a history of hyperemesis she appears to be dehydrated I will give her D5 LR to routine lab work IV Zofran for her nausea control. Informed patient about her lab work. I discussed with Dr. Mendez about her elevated liver enzymes.. Patient presently has no right upper quadrant tenderness.. I did recommended her to follow with Dr. Mendez as scheduled in a week. Vital Signs Vital signs: Vital Signs Temperature 36.5 C 11/03/21 12:28 Pulse Rate 155 H 11/03/21 12:28 Respiratory Rate 18 11/03/21 12:28 Blood Pressure 140/87 11/03/21 12:28 Pulse Oximetry 100 11/03/21 12:28 Temperature 36.5 C 11/03/21 12:28 Pulse Rate 96 11/03/21 14:52 Respiratory Rate 16 11/03/21 14:52 Blood Pressure 113/92 H 11/03/21 14:52 Pulse Oximetry 100 11/03/21 14:52 Medical Decision Making Vital Signs Vital Signs: Vital Signs Temperature 36.5 C 11/03/21 12:28 Pulse Rate 155 H 11/03/21 12:28 Respiratory Rate 18 11/03/21 12:28 Blood
[2021-11-03 17:47] VITALS: BP 145/93; PULSE 91; RESP 16; O2SAT 100
== END 2021-11-03 18:01 | disposition home or self-care (01) ==
PROVIDERS: Emergency Provider Family Medicine; PCP Nurse Practitioner Family
DX: O21.1 Hyperemesis gravidarum with metabolic disturbance (principal); Z3A.11 11 weeks gestation of pregnancy; R74.8 Abnormal levels of other serum enzymes
CPT/HCPCS: 36415; 80053; 81001; 83690; 85025; 87086; 96361; 96374; 99284; J2405; J7030; J7121

== ENCOUNTER 2022-03-30 19:27 | Outpatient (CLI) | payer OTHER, SELFPAY ==
[2022-03-30] VITALS (8 sets, daily range): BP systolic 125–133; BP diastolic 72–83; PULSE 83–95
[2022-03-30 20:17] LABS: Basophils Percent Auto 0.3 % (0.2-1.2); Eosinophils Absolute Auto 0.1 K/mm3 (0-0.3); Eosinophils Percent Auto 0.7 % (0-4.4); Hematocrit 30.6 % (37.0-47.0); Hemoglobin 9.6 g/dL (12.0-15.0); Immature Granulocyte Absolute 0.06 K/mm3 (0.00-0.031); Immature Granulocyte Percent A 0.5 % (0-0.5); Lymphocytes Absolute Auto 1.99 K/mm3 (0.9-3.2); Lymphocytes Percent Auto 17.9 % (18.3-44.2); Mean Corpuscular HGB Conc 31.4 g/dl (32-36); Mean Corpuscular Hemoglobin 28.6 pg (26-34); Mean Corpuscular Volume 91.1 fl (80-100); Mean Platelet Volume 10.5 fl (7.4-10.4); Monocytes Absolute Auto 0.8 K/mm3 (0.1-0.6); Monocytes Percent Auto 7.4 % (2.6-8.5); Neutrophils Absolute Auto 8.1 K/mm3 (1.3-6.7); Neutrophils Percent Auto 73.2 % (45.5-73.1); Platelet Count Result 216 k/mm3 (150-375); Red Blood Count 3.36 M/mm3 (4.2-5.4); Red Cell Distribution Width 12.8 % (11.5-14.5); White Blood Count 11.1 K/mm3 (4.5-10.0)
[2022-03-30 20:23] LABS: Total Protein Urine Random 15 mg/dL; Ur Ttl Prot Creatinine Ratio 0.08 mg/mg (0-0.20)
[2022-03-30 20:27] LABS: Alanine Aminotransferase 10 U/L (6-35); Albumin Level 3.6 g/dL (3.5-5.1); Alkaline Phosphatase 100 U/L (38-126); Anion Gap 6 mmol/L (8-16); Aspartate Amino Transferase 15 U/L (14-36); Bilirubin,Total 0.3 mg/dL (0.2-1.3); Blood Urea Nitrogen 6 mg/dL (7-17); Calcium 8.4 mg/dL (8.4-10.2); Carbon Dioxide 23 mmol/L (22-30); Chloride 106 mmol/L (98-107); Estimated Glomerular Filt Rate > 60; Glucose 76 mg/dL (65-110); Potassium 3.8 mmol/L (3.4-5.0); Sodium 135 mmol/L (137-145); Uric Acid 3.3 mg/dL (2.5-7.5)
[2022-03-30 21:05] LABS: Appearance Urine Cloudy (Clear); Bilirubin Urine Negative (Negative); Blood Urine Negative (Negative); Color Urine Yellow (Yellow); Glucose Urine UA Negative (Negative); Ketones Urine Trace mg/dL (Negative); Leukocyte Esterase Ur Negative LEU/UL (NEGATIVE); Nitrate Urine Negative (Negative); Protein Urine 1+ mg/dL (Negative); pH Urine 8.5 (5.0-9.0)
[2022-03-30 21:15] LABS: Amorphous Sediment Urine Few; Bacteria Urine Trace /hpf; Mucus Urine Rare /lpf; RBC Urine 0-2 /hpf (0-2); Squamous Epithelial Cell Urine Moderate /hpf (Few); WBC Urine 0-3 /hpf (0-3)
[2022-03-30 21:20] LABS: Add Urine Microscopic? YES
== END 2022-03-30 21:00 | disposition home or self-care (01) ==
LOC: ANHOBOP 19:32 → ANHOBPP 04-04 06:16
PROVIDERS: PCP Nurse Practitioner Family; Visit Provider Obstetrics & Gynecology
DX: O13.9 Gestational [pregnancy-induced] hypertension without significant proteinuria, unspecified trimester (principal); Z3A.00 Weeks of gestation of pregnancy not specified
CPT/HCPCS: 36415; 59025; 80053; 81001; 82570; 84156; 84550; 85025; 87086; 87088; 99199

== ENCOUNTER 2022-05-08 15:55 | Inpatient (IN) | payer OTHER, SELFPAY ==
[2022-05-08] VITALS (50 sets, daily range): BP systolic 110–156; BP diastolic 55–124; PULSE 70–267; RESP 15–17; TEMP 36.2–37.1; O2SAT 97–100; BMI 36.1
--- OUTSIDE RECORDS SUMMARY | 2022-05-08 16:01 | XMS_ITS | Encounter Summary ---
:1990 Author Care Team Providers Name Role Phone Harsh Weiss PA-C Primary Care Provider [phone] Reason for Visit OB visit Assessment and Plan Assessment Note Patient is ___weeks . Discussed plan. 1. Anemia ? Slow Fe 142 mg (45 mg iron) tablet,ex tended release Discussion Note: None recorded.Patient educational handouts: No information available. Plan of Care Reminders Provider Appointments None recorded. ? ? Lab None recorded. ? ? Referral None recorded. ? ? Procedures None recorded. ? ? Surgeries None recorded. ? ? Imaging None recorded. ? ? Medications Name Start Date ? ? Baby Aspirin ? cyclobenzaprine 10 mg tablet ? Take 1 tablet 3 times a day by oral route as needed. metoclopramide 5 mg tablet ? TAKE 1 TABLET BY MOUTH EVERY 6 HOURS nifedipine ER 30 mg tablet,extended release ? Take 1 tablet every day by oral route. ondansetron 8 mg disintegrating tablet ? DISSOLVE 1 TABLET ON THE TONGUE TWICE DAILY pantoprazole 40 mg tablet,delayed release ? TAKE 1 TABLET BY MOUTH EVERY MORNING Promethegan 25 mg rectal suppository ? UNWRAP AND INSERT 1 SUPPOSITORY RECTALL Y EVERY 6 HOURS NEEDED FOR NAUSEA OR VOMITING Slow Fe 142 mg (45 mg iron) tablet,extended release ? Take 1 tablet twice a day by oral route. Medications Administered None recorded. Vitals Height Weight BMI Blood Pressure 5 ft 6 in 224 lbs 36.2 kg/m2 137/84 mm[Hg] Results Lab Results None recorded. Allergies
--- OUTSIDE RECORDS SUMMARY | 2022-05-08 16:01 | XMS_ITS | Encounter Summary ---
:1990 Author Care Team Providers Name Role Phone Harsh Weiss PA-C Primary Care Provider [phone] Reason for Visit None recorded. Assessment and Plan 1. Chronic hypertension complicating AN D/OR reason for care during ? non-stress test Discussion Note: None recorded.Patient educational handouts: No information available. Plan of Care Reminders Provider Appointments None recorded. ? ? Lab None recorded. ? ? Referral None recorded. ? ? Procedures None recorded. ? ? Surgeries None recorded. ? ? Imaging Non-stress Test 05/04/2022 [place] Medications Name Start Date ? ? Baby [...] oral route. Medications Administered None recorded. Vitals None recorded. Results Lab Results None recorded. Allergies Code Code System Name Reaction Severity Onset NKDA ? ? ? Problems Name Status Onset Date Source ?
--- OUTSIDE RECORDS SUMMARY | 2022-05-08 16:01 | XMS_ITS | Encounter Summary ---
:1990 Author Care Team Providers Name Role Phone Harhs Weiss PA-C Primary Care Provider [phone] Reason for Visit None recorded. Assessment and Plan 1. Chronic hypertension complicating AN D/OR reason for care during ? non-stress test Discussion Note: None recorded.Patient educational handouts: No information available. Plan of Care Reminders Provider Appointments None recorded. ? ? Lab None recorded. ? ? Referral None recorded. ? ? Procedures None recorded. ? ? Surgeries None recorded. ? ? Imaging Non-stress Test 04/20/2022 [place] Medications Name Start Date ? ? Baby [...]
--- OUTSIDE RECORDS SUMMARY | 2022-05-08 16:01 | XMS_ITS | Encounter Summary ---
:1990 Author Care Team Providers Name Role Phone Harsh Weiss PA-C Primary Care Provider [phone] Reason for Visit None recorded. Assessment and Plan 1. Benign essential hypertension compli cating , childbirth and the puerperium - not delivered ? US, obstetric, biophysical profile Discussion Note: None recorded.Patient educational handouts: No information available. Plan of Care Reminders Provider Appointments None recorded. ? ? Lab None recorded. ? ? Referral None recorded. ? ? Procedures None recorded. ? ? Surgeries None recorded. ? ? Imaging US, Obstetric, Biophysical Profile 04/27/2022 [place] Medications Name Start Date ? ? Baby [...]
--- OUTSIDE RECORDS SUMMARY | 2022-05-08 16:01 | XMS_ITS | Encounter Summary ---
:1990 Author Care Team Providers Name Role Phone Harsh Weiss PA-C Primary Care Provider [phone] Reason for Visit OB visit Assessment and Plan 1. Chronic hypertension complicating AN D/OR reason for care during Discussion Note: None recorded.Patient educational handouts: No [...] BMI Blood Pressure 5 ft 6 in 228 lbs 36.8 kg/m2 138/89 mm[Hg] Results Lab Results None recorded. Allergies Code Code System Name Reaction Severity Onset NKDA ? ? ? Problems Name Sta
--- OUTSIDE RECORDS SUMMARY | 2022-05-08 16:01 | XMS_ITS | Encounter Summary ---
:1990 Author Care Team Providers Name Role Phone Harsh Weiss PA-C Primary Care Provider [phone] Reason for Visit OB visit Assessment and Plan 1. Chronic hypertension complicating AN D/OR reason for care during 2. Low lying placenta 3. History of SARS-CoV-2 Discussion Note: None recorded.Patient educational handouts: No [...] BMI Blood Pressure 5 ft 6 in 214 lbs 34.5 kg/m2 122/82 mm[Hg] Results Lab Results None recorded. Allergies Code Code System Name Reaction Severity Onset
--- OUTSIDE RECORDS SUMMARY | 2022-05-08 16:01 | XMS_ITS | Encounter Summary ---
:1990 Author Care Team Providers Name Role Phone Harsh Weiss PA-C Primary Care Provider [phone] Reason for Visit None recorded. Assessment and Plan 1. Chronic hypertension complicating AN D/OR reason for care during ? non-stress test Discussion Note: None recorded.Patient educational handouts: No information available. Plan of Care Reminders Provider Appointments None recorded. ? ? Lab None recorded. ? ? Referral None recorded. ? ? Procedures None recorded. ? ? Surgeries None recorded. ? ? Imaging Non-stress Test 04/01/2022 [place] Medications Name Start Date ? ? Baby [...]
--- OUTSIDE RECORDS SUMMARY | 2022-05-08 16:01 | XMS_ITS | Encounter Summary ---
:1990 Author Care Team Providers Name Role Phone Harsh Weiss PA-C Primary Care Provider [phone] Reason for Visit None recorded. Assessment and Plan 1. Chronic hypertension complicating AN D/OR reason for care during ? non-stress test Discussion Note: None recorded.Patient educational handouts: No information available. Plan of Care Reminders Provider Appointments None recorded. ? ? Lab None recorded. ? ? Referral None recorded. ? ? Procedures None recorded. ? ? Surgeries None recorded. ? ? Imaging Non-stress Test 04/06/2022 [place] Medications Name Start Date ? ? Baby [...]
--- OUTSIDE RECORDS SUMMARY | 2022-05-08 16:01 | XMS_ITS | Encounter Summary ---
:1990 Author Care Team Providers Name Role Phone Harsh Weiss PA-C Primary Care Provider [phone] Reason for Visit OB visit Assessment and [...] BMI Blood Pressure 5 ft 6 in 235 lbs 37.9 kg/m2 (1) 145/92 mm[H g] (2) 122/80 mm[Hg ] Results Lab Results None recorded. Allergies Code Code System Name Reaction Severity Onset NKDA
--- OUTSIDE RECORDS SUMMARY | 2022-05-08 16:01 | XMS_ITS | Encounter Summary ---
:1990 Author Care Team Providers Name Role Phone Harsh Weiss PA-C Primary Care Provider [phone] Reason for Visit None recorded. Assessment and Plan 1. Chronic hypertension complicating AN D/OR reason for care during ? US, obstetric, follow-up Discussion Note: None recorded.Patient educational handouts: No information available. Plan of Care Reminders Provider Appointments None recorded. ? ? Lab None recorded. ? ? Referral None recorded. ? ? Procedures None recorded. ? ? Surgeries None recorded. ? ? Imaging US, Obstetric, Follow-up 04/20/2022 [place] Medications Name Start Date ? ? Baby [...]
--- OUTSIDE RECORDS SUMMARY | 2022-05-08 16:01 | XMS_ITS | Encounter Summary ---
:1990 Author Care Team Providers Name Role Phone Harsh Weiss PA-C Primary Care Provider [phone] Reason for Visit None recorded. Assessment and Plan 1. Chronic hypertension complicating AN D/OR reason for care during ? non-stress test Discussion Note: None recorded.Patient educational handouts: No information available. Plan of Care Reminders Provider Appointments None recorded. ? ? Lab None recorded. ? ? Referral None recorded. ? ? Procedures None recorded. ? ? Surgeries None recorded. ? ? Imaging Non-stress Test 04/27/2022 [place] Medications Name Start Date ? ? Baby [...]
--- OUTSIDE RECORDS SUMMARY | 2022-05-08 16:01 | XMS_ITS | Encounter Summary ---
:1990 Author Care Team Providers Name Role Phone Harsh Weiss PA-C Primary Care Provider [phone] Reason for Visit OB visit Assessment and Plan 1. Tension-type headache ? cyclobenzaprine 10 mg tablet 2. Routine care 3. Chronic hypertension complicating AN D/OR reason for [...] BMI Blood Pressure 5 ft 6 in 226 lbs 36.5 kg/m2 132/84 mm[Hg] Results Lab Results None recorded. Allergies
--- OUTSIDE RECORDS SUMMARY | 2022-05-08 16:01 | XMS_ITS | Encounter Summary ---
:1990 Author Care Team Providers Name Role Phone Harsh Weiss PA-C Primary Care Provider [phone] Reason for Visit OB visit Assessment and Plan Assessment Note Patient is ___weeks . Discussed plan. Discussion Note: None recorded.Patient educational handouts: No [...] BMI Blood Pressure 5 ft 6 in 221 lbs 35.7 kg/m2 122/79 mm[Hg] Results Lab Results None recorded. Allergies Code Code System Name Reaction Severity Onset NKDA ? ? ? Problems
--- OUTSIDE RECORDS SUMMARY | 2022-05-08 16:01 | XMS_ITS | Encounter Summary ---
:1990 Author Care Team Providers Name Role Phone Harsh Weiss PA-C Primary Care Provider [phone] Reason for Visit None recorded. Assessment and Plan 1. Chronic hypertension complicating AN D/OR reason for care during ? US, obstetric, biophysical profile + non-stress test Discussion Note: None recorded.Patient educational handouts: No information available. Plan of Care Reminders Provider Appointments None recorded. ? ? Lab None recorded. ? ? Referral None recorded. ? ? Procedures None recorded. ? ? Surgeries None recorded. ? ? Imaging US, Obstetric, Biophysical Profile + [address] [place] [address] Non-stress Test Medications Name Start Date ? ? Baby [...] Reaction Severity Onset NKDA ? ? ? Pr
--- OUTSIDE RECORDS SUMMARY | 2022-05-08 16:01 | XMS_ITS | Encounter Summary ---
:1990 Author Care Team Providers Name Role Phone Harsh Weiss PA-C Primary Care Provider [phone] Reason for Visit None recorded. Assessment and Plan 1. Low lying placenta ? US, obstetric, follow-up ? US, obstetric, transvaginal Discussion Note: None recorded.Patient educational handouts: No information available. Plan of Care Reminders Provider Appointments None recorded. ? ? Lab None recorded. ? ? Referral None recorded. ? ? Procedures None recorded. ? ? Surgeries None recorded. ? ? Imaging US, Obstetric, Follow-up 03/18/2022 [place] ? US, Obstetric, Transvaginal 03/18/2022 [place] Medications Name Start Date ? ? Baby [...] Reaction Severity Onset NKDA ? ? ? P
--- OUTSIDE RECORDS SUMMARY | 2022-05-08 16:01 | XMS_ITS ---
:1990 Author Care Team Providers Name Role Phone LESLIE JACKMAN PA-C Primary Care Provider [phone] Allergies Code Code System Name Reaction Severity Status Onset NKDA ? Medications Name Status Start Date Stop Date ? ? Baby Aspirin Active ? Not available cyclobenzaprine 10 mg tablet Active ? Not available Take 1 tablet 3 times a day by oral route as needed. losartan 50 mg tablet Completed ? 01/11/2022 TAKE 1 TABLET BY MOUTH EVERY DAY metoclopramide 5 mg tablet Active ? Not a vailable TAKE 1 TABLET BY MOUTH EVERY 6 HOURS metronidazole 0.75 % (37.5 mg/5 gram) vaginal gel Active ? Not available INSERT ONE APPLICATORFUL VAGINALLY AT BEDTIME metronidazole 500 mg tablet Completed ? 12/20 TAKE 1 TABLET BY MOUTH TWICE DAILY FOR 7 DAYS nifedipine Completed ? 04/06/2022 nifedipine ER 30 mg tablet,extended release Active ? Not available Take 1 tablet every day by oral route. norethindrone (contraceptive) 0.35 mg tablet Completed ? 01/11/2022 TAKE 1 TABLET BY MOUTH EVERY DAY ondansetron 8 mg disintegrating tablet Active ? Not available DISSOLVE 1 TABLET ON THE TONGUE TWICE DAILY pantoprazole Completed ? 01/11/2022 pantoprazole 40 mg tablet,delayed release Active ? Not available TAKE 1 TABLET BY MOUTH EVERY MORNING Pepcid Completed ? 11/08/2021 potassium chloride ER 20 mEq tablet,extended release Completed ? 04/27/2022 TAKE 1 TABLET BY MOUTH EVERY DAY FOR 5 DAYS nifedipine ER 30 mg tablet,extended release 24 hr Active ? Not available
--- OUTSIDE RECORDS SUMMARY | 2022-05-08 16:01 | XMS_ITS | Encounter Summary ---
:1990 Author Care Team Providers Name Role Phone Harsh Weiss PA-C Primary Care Provider [phone] Reason for Visit None recorded. Assessment and Plan 1. Chronic hypertension complicating AN D/OR reason for care during ? US, obstetric, biophysical profile Discussion Note: None recorded.Patient educational handouts: No information available. Plan of Care Reminders Provider Appointments None recorded. ? ? Lab None recorded. ? ? Referral None recorded. ? ? Procedures None recorded. ? ? Surgeries None recorded. ? ? Imaging US, Obstetric, Biophysical Profile 04/06/2022 [place] Medications Name Start Date ? ? Baby [...]
--- OUTSIDE RECORDS SUMMARY | 2022-05-08 16:01 | XMS_ITS | Encounter Summary ---
:1990 Author Care Team Providers Name Role Phone Harsh Weiss PA-C Primary Care Provider [phone] Reason for Visit OB visit Assessment and [...] BMI Blood Pressure 5 ft 6 in 231 lbs 37.3 kg/m2 (1) 145/89 mm[H g] (2) 132/88 mm[Hg ] Results Lab Results None recorded. Allergies Code Code System Name Reaction Severity Onset NKDA
[2022-05-08 16:24] LABS: Basophils Percent Auto 0.3 % (0.2-1.2); Eosinophils Absolute Auto 0.1 K/mm3 (0-0.3); Eosinophils Percent Auto 0.5 % (0-4.4); Hematocrit 32.4 % (37.0-47.0); Hemoglobin 10.4 g/dL (12.0-15.0); Immature Granulocyte Absolute 0.07 K/mm3 (0.00-0.031); Immature Granulocyte Percent A 0.5 % (0-0.5); Lymphocytes Absolute Auto 2.09 K/mm3 (0.9-3.2); Mean Corpuscular HGB Conc 32.1 g/dl (32-36); Mean Corpuscular Hemoglobin 28.3 pg (26-34); Mean Corpuscular Volume 88.3 fl (80-100); Mean Platelet Volume 10.5 fl (7.4-10.4); Monocytes Absolute Auto 0.9 K/mm3 (0.1-0.6); Monocytes Percent Auto 6.4 % (2.6-8.5); Neutrophils Absolute Auto 10.8 K/mm3 (1.3-6.7); Neutrophils Percent Auto 77.3 % (45.5-73.1); Platelet Count Result 230 k/mm3 (150-375); Red Blood Count 3.67 M/mm3 (4.2-5.4); Red Cell Distribution Width 14.5 % (11.5-14.5)
--- NOTE | 2022-05-08 16:37 | LDADM ---
This patient, Nohemi Call, was admitted to Labor/Delivery/Recovery 108 on 05/08/22 at 15:55. Plans for labor, pain management and were discussed with patient. Patient/family oriented to hospital policies and general routines including ID bracelet, bed and alarms, visiting hours, pain management, procedures, bathroom and other care routines, personal items, smoking policy, room service/diet and guest tray routines, infant security routines, and visiting hours. Patient/Family are encouraged to report perceived risks to care and to ask questions if they do not understand what they are told or what they should do. See [facility] for further documentation.
[2022-05-08] MEDS: miSOPROStol 25 MCG TABLET VAGINAL (17:10)
--- NOTE | 2022-05-08 17:21 | WPDANESEPP ---
Anes - Eval Pre Procedure Procedure: Labor Epidural Date/Time: 05/08/22 17:21 Pre Op Diagnosis: Induction of Labor Patient Data Age: 32 Gender: F Height: 1.68 m Weight: 101.5 kg Last Vital Signs Temp 36.2 C L 05/08/22 16:30 Pulse 82 05/08/22 17:16 BP 137/87 05/08/22 17:16 Allergies Allergy/AdvReac Type Severity Reaction Status Date / Time No Known Allergies Allergy Verified 05/04/22 14:05 Home Medications Medication Instructions Recorded Confirmed Type nifedipine 30 mg tablet,extended 30 mg PO DAILY 2 weeks #14 tabs 09/25/21 05/08/22 Rx release 24 hr (Procardia XL) ferrous sulfate 325 mg (65 mg 325 mg PO DAILY 05/04/22 05/04/22 History iron) tablet,delayed release vit 168-iron 27 mg-folic 1 cap PO DAILY 05/08/22 05/08/22 History acid 800 mcg-omega3 235 mg capsule (One-A-Day -1) Laboratory Tests 05/08/22 05/08/22 05/08/22 16:18 16:18 16:18 WBC 14.0 K/mm3 H K/mm3 (4.5-10.0) RBC 3.67 M/mm3 L M/mm3 (4.2-5.4) Hgb 10.4 g/dL L g/dL (12.0-15.0) Hct 32.4 % L % (37.0-47.0) MCV 88.3 fl fl (80-100) MCH 28.3 pg pg (26-34) MCHC 32.1 g/dl g/dl (32-36) RDW 14.5 % % (11.5-14.5) Plt Count 230 k/mm3 k/mm3 (150-375) MPV 10.5 fl H fl (7.4-10.4) Immature Gran % (Auto) 0.5 % % (0-0.5) Neut % (Auto) 77.3 % H % (45.5-73.1) Lymph % (Auto) 15.0 % L % (18.3-44.2) [place] % (Auto) 6.4 % % (2.6-8.5) Eos % (Auto) 0.5 % % (0-4.4) Baso % (Auto) 0.3 % % (0.2-1.2) Lymph # (Auto) 2.09 K/mm3 K/mm3 (0.9-3.2) [place] # (Auto) 0.9 K/mm3 H K/mm3 (0.1-0.6) Eos # (Auto) 0.1 K/mm3 K/mm3 (0-0.3) Baso # (Auto) 0.0 K/mm3 K/mm3 (0.0-0.1) Abs Immat Gran (auto) 0.07 K/mm3 H K/mm3 (0.00-0.031) Absolute Neuts (auto) 10.8 K/mm3 H K/mm3 (1.3-6.7) Absolute Nucleated RBC 0.0 K/mm3 K/mm3 (0.0-0.012) Nucleated RBC % 0.0 % % (0.0-0.2) RPR Pending Blood Type AB Positive Antibody Screen Pending Patient hx anesthesia problems: none Family hx anesthesia problems: none Results Review: All pre-operative results and documents have been reviewed as part of the pre-operative evaluation. [facility] Past Medical History Medical History HTN (hypertension) Surgical History Surgical History Hx of tonsillectomy Family History Family History Mother Hypertension Thyroid cancer Social History Social History Smoking status: Former smoker Tobacco type: e-cigarettes/vaping Second hand tobacco smoke exposure: Yes Substance use: never Gender identity (if verbalized by the patient): Female Sexual Orientation (if Verbalized by the Patient): Straight or Heterosexual Spiritual care concerns: No Exam Day of Procedure 05/08/22 17:21 Patient weight: obese Heart: regular rate and rhythm Lungs: normal air movement Airway: Mallampati scale class II Neurological: alert and oriented
[2022-05-08 17:53] LABS: Alanine Aminotransferase 11 U/L (6-35); Albumin Level 4.1 g/dL (3.5-5.1); Alkaline Phosphatase 178 U/L (38-126); Anion Gap 16 mmol/L (8-16); Aspartate Amino Transferase 17 U/L (14-36); Bilirubin,Total 0.5 mg/dL (0.2-1.3); Blood Urea Nitrogen 4 mg/dL (7-17); Calcium 9.1 mg/dL (8.4-10.2); Carbon Dioxide 19 mmol/L (22-30); Chloride 102 mmol/L (98-107); Estimated CRCL calculation 165 ml/min; Estimated Glomerular Filt Rate > 60; Glucose 66 mg/dL (65-110); Potassium 3.6 mmol/L (3.4-5.0); Sodium 137 mmol/L (137-145)
[2022-05-08] MEDS: LACTATED RINGERS 1,000 ML 125 ML IV CONT ×2 (22:14→23:12)
[2022-05-08] MEDS: OXYTOCIN 30 UNITS/NS 500 ML 30 UNITS/500 ML BAG IV CONT (23:12)
[2022-05-09] VITALS (96 sets, daily range): BP systolic 111–170; BP diastolic 56–112; PULSE 67–194; RESP 15–18; TEMP 36.2–37.1; O2SAT 98–100
[2022-05-09] MEDS: FAMOTIDINE 20 MG/2 ML VIAL IV PUSH (01:51)
--- NOTE | 2022-05-09 06:24 | PM.IMHP ---
H&P: HPI History of Present Illness Date/Time: 05/09/22 06:24 Chief Complaint: induction of labor Narrative: Nohemi is a 32yo at 38.1 for IOL cHTN. Takes procardia, BPs well controlled on this. also complicated by anemia and COVID this . she received cytotec x1 and pitocin overnight. GBS neg. Review of Systems Review of Systems: All systems reviewed & are unremarkable except as noted in HPI and below PMFSH Past Medical History Medical History HTN (hypertension) Surgical History Surgical History Hx of tonsillectomy Family History Family History Mother Hypertension Thyroid cancer Social History Social History Smoking status: Former smoker Tobacco type: e-cigarettes/vaping Second hand tobacco smoke exposure: Yes Substance use: never Gender identity (if verbalized by the patient): Female Sexual Orientation (if Verbalized by the Patient): Straight or Heterosexual Spiritual care concerns: No Meds Home Medications and Allergies Home Medications Medication Instructions Recorded Confirmed Type nifedipine 30 mg tablet,extended 30 mg PO DAILY 2 weeks #14 tabs 09/25/21 05/08/22 Rx release 24 hr (Procardia XL) ferrous sulfate 325 mg (65 mg 325 mg PO DAILY 05/04/22 05/04/22 History iron) tablet,delayed release vit 168-iron 27 mg-folic 1 cap PO DAILY 05/08/22 05/08/22 History acid 800 mcg-omega3 235 mg capsule (One-A-Day -1) Allergies Allergy/AdvReac Type Severity Reaction Status Date / Time No Known Allergies Allergy Verified 05/04/22 14:05 Vital Signs Vital Signs - 24 hr 05/08/22 16:30 05/08/22 16:36 05/08/22 16:45 Temperature 97.2 F L Pulse Rate 91 92 Respiratory Rate Blood Pressure 139/86 129/86 Pulse Oximetry 05/08/22 17:00 05/08/22 17:16 05/08/22 17:30 Temperature Pulse Rate 98 82 101 H Respiratory Rate Blood Pressure 143/82 H 137/87 131/85 Pulse Oximetry 05/08/22 17:45 05/08/22 18:00 05/08/22 18:15 Temperature Pulse Rate 94 86 89 Respiratory Rate Blood Pressure 124/70 142/95 H 131/88 Pulse Oximetry 05/08/22 18:16 05/08/22 18:30 05/08/22 18:45 Temperature 98.6 F Pulse Rate 84 86 Respiratory Rate 17 Blood Pressure 135/78 129/87 Pulse Oximetry 05/08/22 19:00 05/08/22 19:30 05/08/22 19:53 Temperature 98.1 F Pulse Rate 75 93 Respiratory Rate 15 Blood Pressure 131/78 138/89 Pulse Oximetry 05/08/22 19:58 05/08/22 20:00 05/08/22 20:30 Temperature 98.3 F Pulse Rate 83 79 Respiratory Rate Blood Pressure 139/77 140/90 Pulse Oximetry 05/08/22 21:00 05/08/22 21:31 05/08/22 22:00 Temperature Pulse Rate 77 70 90 Respiratory Rate Blood Pressure 121/55 L 135/78 131/81 Pulse Oximetry 05/08/22 22:57 05/08/22 23:03 05/08/22 23:04 Temperature Pulse Rate 99 93 Respiratory Rate Blood Pressure 156/93 H 149/82 H Pulse Oximetry 98 100 05/08/22 23:06 05/08/22 23:08 05/08/22 23:09 Temperature Pulse Rate 88 Respiratory Rate Blood Pressure 127/99 H 149/94 H Pulse Oximetry 100 05/08/22 23:12 05/08/22 23:15 05/08/22 23:17 Temperature Pulse Rate 140 H Respiratory Rate Blood Pressure 149/85 H 126/87 Pulse Oximetry 100 05/08/22 23:18 05/08/22 23:20 05/08/22 23:21 Temperature Pulse Rate 267 H 86 Respiratory Rate Blood Pressure 128/78 122/68 Pulse Oximetry 100 05/08/22 23:24 05/08/22 23:25 05/08/22 23:27 Temperature 98.7 F Pulse Rate 79 84 Respiratory Rate 16 Blood Pressure 130/72 141/77 H Pulse Oximetry 100 05/08/22 23:30 05/08/22 23:33 05/08/22 23:35 Temperature Pulse Rate 76 87 Respiratory Rate Blood Pr
[2022-05-09] MEDS: LACTATED RINGERS 1,000 ML 125 ML IV CONT ×3 (06:27→16:46)
[2022-05-09 06:39] LABS: Rapid Plasma Reagin Non-Reactive (NonReactive)
[2022-05-09] MEDS: NIFEdipine 30 MG TAB.ER.24 PO (09:49)
--- NOTE | 2022-05-09 16:00 | PC.NURSE ---
50 mcg of Fentnyl given per Epidural by [employer] x 2 doses.
[2022-05-09] MEDS: miSOPROStol 200 MCG TABLET 800 MCG RECTAL (16:23)
[2022-05-09] MEDS: CARBOPROST TROMETHAMINE 250 MCG/ML AMPUL IM (16:26)
[2022-05-09] MEDS: MORPHINE SULFATE INJ (*CRX) 10 MG/ML AMP (16:30)
[2022-05-09] MEDS: OXYTOCIN 30 UNITS/NS 500 ML 30 UNITS/500 ML BAG 999 UNITS IV CONT (16:46)
--- NOTE | 2022-05-09 16:51 | P.PCNOB_ITS ---
OB - Delivery Note Procedure Delivery date: 05/09/22 Procedure: Events: Chronic Hypertension Induction method: AROM, Per Misoprostol Protocol and Per Pitocin Protocol Delivery monitor: External FHT and Internal Uterine Route of delivery: Laceration Description: None Quantitative Blood Loss (ml): 960 Anesthesia type: Epidural Disposition: Floor Narrative: With adequate expulsive efforts by the mother, the baby's head was delivered OA. The baby's anterior shoulder was delivered under the pubic symphysis without difficulty. The posterior shoulder and the rest of the baby delivered without difficulty. The was placed on the mothers chest and suctioned and stimulated. The cord was clamped and cut after 30 seconds. Mother and baby both stable. Placenta delivered spontaneously. Lower segment atony was significant and persistent. It was treated with pitocin, misoprostol, and hemabate, and uterine massage. Cervix was inspected and no lacerations. [place] Baby Date of : 05/09/22 Time of : 16:07 Weeks of gestation at delivery: 38 gender: Female Weight (pounds): 8 Weight (ounces): 7 presentation: vertex position: Other (Was LOP. Rotated manually to direct OA for delivery.) Placenta delivery description: Spontaneous Cord Vessel Description: 3 Vessels and Delayed Cord Clamping score one minute: 8 score five minutes: 9
[2022-05-09 18:18] LABS: Hematocrit 33.2 % (37.0-47.0); Hemoglobin 10.5 g/dL (12.0-15.0)
--- NOTE | 2022-05-09 19:43 | PC.NURSE ---
Patient transferred to post room #291 via w/c. Support person, Yan, present. Oriented to unit, room, information board, rooming in, admission packet and security measures. Patient verbalizes understanding.
--- NOTE | 2022-05-09 20:51 | PC.NURSE ---
1717 Oxytocin infused by Nicole Hdz RN.
[2022-05-10 00:20] VITALS: BP 139/76; PULSE 86; RESP 16; TEMP 36.8; O2SAT 100
[2022-05-10] MEDS: IBUPROFEN 600 MG TABLET PO ×3 (00:30→17:50)
[2022-05-10] MEDS: WITCH HAZEL 40 PADS 1 PAD TOPICAL (00:56)
[2022-05-10] MEDS: BENZOCAINE 20% AER SPR (*SP) 56 GM CAN 1 SPRAY TOPICAL (00:56)
[2022-05-10] MEDS: LANOLIN (LANSINOH) 7.5 GM CREAM 1 APPLIC TOPICAL (00:56)
[2022-05-10] MEDS: ACETAMINOPHEN 325 MG TABLET 650 MG PO ×2 (03:53→12:41)
[2022-05-10 04:03] VITALS: BP 126/85; PULSE 80; RESP 18; TEMP 36.8; O2SAT 100
[2022-05-10 05:12] LABS: Hematocrit 25.9 % (37.0-47.0); Hemoglobin 8.2 g/dL (12.0-15.0)
[2022-05-10 07:55] VITALS: BP 128/78; PULSE 74; RESP 18; TEMP 37.1; O2SAT 100
[2022-05-10] MEDS: POLYSACCHARIDE IRON COMPLEX 150 MG CAPSULE PO ×2 (08:58→17:50)
[2022-05-10] MEDS: MULTIVIT/MIN/PREN/FOL AC/IRON TABLET 1 TAB PO (08:58)
[2022-05-10] MEDS: DOCUSATE SODIUM 100 MG CAPSULE PO ×2 (08:58→17:50)
[2022-05-10] MEDS: NIFEdipine 30 MG TAB.ER.24 PO (09:39)
[2022-05-10] MEDS: IRON SUCROSE COMPLEX 200 MG in SODIUM CHLORIDE 0.9% IV 50 ML 120 MG IVPB (09:46)
--- NOTE | 2022-05-10 09:49 | PM.OBPNVD ---
OB - PN: Subj Subjective Date/time seen: 05/10/22 09:49 Patient comments: no complaints, pain well controlled, incisional pain, tolerating diet and flatus present OB - PN: Obj Data Labs CBC & Chem 7: 05/10/22 03:50 05/08/22 17:29 Labs: Laboratory Results - last 24 hr 05/09/22 05/10/22 18:08 03:50 Hgb 10.5 L 8.2 L Hct 33.2 L 25.9 L OB - PN A/P Plan day: 1 Plan: routine care Comments: No problems, routine care, IV Fe Time Spent With Patient Time: Total time spent is greater than 50% in coordination of care (as documented) at patient's floor/unit and/or counseling patient: Exam Const: General: comfortable, no acute distress and alert Resp: Effort & Inspection: normal respiratory effort Auscultation: no crackles, no rales and no rhonchi Cardio: Rate: regular rate Heart sounds: no click, no murmurs and no rubs GI: Inspection: non-distended GI Palp: No Tenderness to palpation present (GI) Auscultation: normal bowel sounds Other: Incision - CDI Extrem: General: normal to inspection, no pedal edema and no calf tenderness
[2022-05-10 12:09] VITALS: BP 117/66; PULSE 77; RESP 18; TEMP 36.9; O2SAT 100
--- NOTE | 2022-05-10 13:16 | WPDANLDPN2 ---
Anes-Prog Note L&D Date/Time: 05/10/22 13:16 Comfortable throughout: labor (intermittent pain, responsive to repeated bolus ) and delivery (pain with delivery) Neuraxial method: epidural Epidural/Spinal procedure site: clean & non-tender Neuro status: Neuro function grossly intact. Cardiovascular status: normal Respiratory status: normal Airway patency: baseline Mental status: baseline Post-Op hydration status: normal Vital Signs: Last Vital Signs Temp 98.4 F 05/10/22 12:09 Pulse 77 05/10/22 12:09 Resp 18 05/10/22 12:09 BP 117/66 05/10/22 12:09 Pulse Ox 100 05/10/22 12:09 O2 Del Method Room Air 05/10/22 12:05 Pain score (VAS): 0 I/O: Intake & Output 05/09/22 05/10/22 05/10/22 23:59 07:59 15:59 Intake Total 3680 60 Output Total 993 Balance 2687 60 Post-procedural complaints: none Patient feedback: Patient satisfied with anesthetic care.
--- NOTE | 2022-05-10 16:05 | PC.NURSE ---
[id number] Introductions were made, then consulted with patient to assess needs related to . Mother led the conversation with her?plans to feed?her infant and the?experience so far. Resources provided for inpatient and outpatient services using a resource guide and mom/baby guide. Mother voiced understanding of information and requests assistance. Mother works well with her infant with encouragement and education. Encouraged understanding of the benefits of skin to skin (unwrapping and placing vertically on her chest), responsive feeding and how to watch for early feeding signs, frequency of feeding on demand about every 8-12 times in 24 hours (every 2-3 hours), milk production, hand expression with clean hands, signs of adequate intake/output and how to record on the feeding sheet. Nipple care reviewed with optimal latch and good positioning. Infant is reluctant to breastfeed at this time. Mother hand expressed colostrum and a teaspoon of colostrum was fed to her infant allowing infant to lap it out of the spoon. Resources used to facilitate learning were used with the tool and mom and baby guide. Mother voiced understanding of responsive feedings, stimulating with skin to skin, hand expressed colostrum, touch, talking to to encourage if it has been 2 -3 hours since the start of the last , to call if infant does not latch or there is discomfort with . Reported to the primary RN.
[2022-05-10 18:50] VITALS: BP 130/88; PULSE 72; RESP 16; TEMP 36.1
--- NOTE | 2022-05-11 06:37 | P.PNOB_ITS ---
OB - PN: Subj Subjective Date/time seen: 05/11/22 06:37 Patient comments: no complaints baby status: doing well [place] feeding status: breast and bottle feeding OB - PN: Obj Data Labs CBC & Chem 7: 05/10/22 03:50 05/08/22 17:29 OB - PN A/P Plan day: 2 Plan: routine care and discharge home Comments: glynn this am prior to DC resume oral iron at home Time Spent With Patient Time: Total time spent is greater than 50% in coordination of care (as documented) at patient's floor/unit and/or counseling patient: Time with patient: less than 15 minutes Exam Narrative: NAD abdomen soft, nontender, fundus firm below the umbilicus Extremities nontender, 1+ edema
--- NOTE | 2022-05-11 06:40 | PM.OBDSVD ---
DS: Admitting Diagnosis Discharge Date 05/11/22 Admitting Diagnosis chronic HTN, term IUP DS: Discharge Diagnosis Discharge Diagnosis (1) Chronic hypertension affecting : Code(s): O10.919 - Unspecified pre-existing hypertension complicating , unspecified trimester Status: Acute (2) , delivered: Code(s): O80 - Encounter for full-term uncomplicated delivery Status: Acute OB - DS: Summary Hospital Course Hospital Course: Nohemi was admitted for induction of labor at 38w for chronic hypertension. she had an uncomplicated vaginal delivery but had an immediate hemorrhage. She received IV iron and was asymptomatic and had an uncomplicated course and was discharged home on day 2. OB Procedures : NST and Ultrasound OB Procedures Intrapartum: Spontaneous Vag Delivery OB Procedures: : None Peripartum Data Infant Delivery Method: Natural Vaginal Status at Discharge Functional status at discharge: independent ambulation Time Spent with Patient Time attestation: Total time spent providing and/or coordinating discharge services: Exam Narrative: NAD abdomen soft, appropriately tender Ext non tender, 1+ edema Discharge Plan Discharge Attending physician on discharge: Michelle Mendez Discharging Clinician: Michelle Mendez Anticipated Discharge Date/Time: 05/11/22 06:39 Patient Disposition: Home, Self-Care Activity: pelvic rest Diet: regular Patient Instructions: Antibiotic Form Stand Alone Forms: General Discharge Information Follow-up/Referrals: Michelle Mendez MD [Physician] - 4 Weeks Discharge Medications: Continued nifedipine [Procardia XL] 30 mg tablet extended release 24 hr 30 mg PO DAILY 14 Days Qty: 14 0RF ferrous sulfate 325 mg (65 mg iron) Tablet,Delayed Release (Dr/Ec) 325 mg PO DAILY One-A-Day -1 27 mg iron- 800 mcg-235 mg Capsule 1 cap PO DAILY Date of admission: 05/08/22 15:55 Primary Care Provider: Abhishek,Amisha Admitting Provider: Michelle Mendez Attending physician on admission: Michelle Mendez Condition: Stable
[2022-05-11] MEDS: MULTIVIT/MIN/PREN/FOL AC/IRON TABLET 1 TAB PO (06:57)
[2022-05-11] MEDS: POLYSACCHARIDE IRON COMPLEX 150 MG CAPSULE PO (06:57)
[2022-05-11] MEDS: DOCUSATE SODIUM 100 MG CAPSULE PO (06:57)
[2022-05-11 07:35] VITALS: BP 128/87; PULSE 80; RESP 16; TEMP 36.5; O2SAT 100
[2022-05-11] MEDS: IRON SUCROSE COMPLEX 200 MG in SODIUM CHLORIDE 0.9% IV 50 ML 120 MG IVPB (09:25)
[2022-05-11] MEDS: NIFEdipine 30 MG TAB.ER.24 PO (09:26)
--- NOTE | 2022-05-11 15:10 | PC.NURSE ---
It was reported that mother was able to latch at night for 10 minutes without discomfort, uses syringe feeding at times if doesn't latch and mother did not call for assistance today.
[2022-05-12 08:50] VITALS: BP 143/92; PULSE 89; RESP 20; TEMP 36.7; O2SAT 99
== END 2022-05-11 10:28 | disposition home or self-care (01) | DRG 560 ==
LOC: ANHLDR 15:59 → ANHOB2 05-09 19:49
PROVIDERS: Admitting Provider Obstetrics & Gynecology; PCP Nurse Practitioner Family; Visit Provider Obstetrics & Gynecology
DX: O10.92 Unspecified pre-existing hypertension complicating childbirth (principal); O72.1 Other immediate postpartum hemorrhage; O99.02 Anemia complicating childbirth; O76 Abnormality in fetal heart rate and rhythm complicating labor and delivery; Z3A.38 38 weeks gestation of pregnancy; Z37.0 Single live birth; Z86.16 Personal history of COVID-19; Z87.891 Personal history of nicotine dependence
CPT/HCPCS: 36415; 80053; 84550; 85014; 85018; 85025; 86592; 86850; 86900; 86901; A9270; J1756; J2270; J2590; J2795; J7120

== ENCOUNTER 2023-11-24 13:42 | Emergency (ER) | payer OTHER, SELFPAY ==
[2023-11-24] VITALS (7 sets, daily range): BP systolic 169–180; BP diastolic 108–124; PULSE 74–107; RESP 10–18; TEMP 36.6; O2SAT 99–100
--- NOTE | 2023-11-24 14:19 | ED.GENADULT ---
HPI - General Adult General Chief complaint: Unspecified Stated complaint: Neck pain Time Seen by Provider: 11/24/23 14:03 History of Present Illness HPI narrative: This is a 33-year-old female presenting with neck pain. Patient noticed stiffness in the left side her neck that has been getting worse over the last 3 days. Now she is having difficulty turning her head. Pain is worse with movement. She took Tylenol last night which helped. She has not take any medication today. Patient denies fevers chills swelling trauma confusion or neurologic deficits. no difficulty swallowing. patient notes that since her next neck has hurting her blood pressures have running a bit higher. No chest pain, difficulty breathing, neuro deficits. Related Data Home Medications Medication Instructions Recorded Confirmed ferrous sulfate 325 mg (65 mg 325 mg PO DAILY 05/04/22 05/04/22 iron) tablet,delayed release vit 168-iron 27 mg-folic 1 cap PO DAILY 05/08/22 05/08/22 acid 800 mcg-omega3 235 mg capsule (One-A-Day -1) Allergies Allergy/AdvReac Type Severity Reaction Status Date / Time No Known Allergies Allergy Verified 11/24/23 14:01 [facility] Past Medical History Medical History HTN (hypertension) Surgical History Surgical History Hx of tonsillectomy Family History Family History Mother Hypertension Thyroid cancer Social History Social History Smoking status: Former smoker Tobacco type: e-cigarettes/vaping Second hand tobacco smoke exposure: Yes Substance use: never Living arrangements: with family Gender identity (if verbalized by the patient): Female Sexual Orientation (if Verbalized by the Patient): Straight or Heterosexual Spiritual care concerns: No Course Vital Signs Vital signs: Vital Signs Temperature 97.8 F 11/24/23 13:43 Pulse Rate 107 H 11/24/23 13:43 Respiratory Rate 18 11/24/23 13:43 Blood Pressure 180/124 H 11/24/23 13:43 Pulse Oximetry 100 11/24/23 13:43 Oxygen Delivery Room Air 11/24/23 13:43 Temperature 97.8 F 11/24/23 13:43 Pulse Rate 107 H 11/24/23 13:43 Respiratory Rate 12 11/24/23 13:58 Blood Pressure 180/124 H 11/24/23 13:43 Pulse Oximetry 100 11/24/23 13:58 Oxygen Delivery Room Air 11/24/23 13:43 Medical Decision Making MDM Narrative Medical decision making narrative: -Course: This is a 33-year-old female presenting with neck pain. history and physical consistent with musculoskeletal neck pain. No other concerning findings. Patient treated with Motrin Tylenol Robaxin. Discharged primary care follow-up -DDX includes but is not limited to: MSK pain, muscle spasms, arthritis, tension headache -Co-morbidities complicating care: Hypertension -Social determinants of health: unemployed, 2 children under 1 year of age at home. no alcohol, patient vapes and smokes marijuana occasionally -Interventions: Motrin, Tylenol, Robaxin -Shared decision making / Disposition: discharge -RX Motrin Tylenol Robaxin Vital Signs Vital Signs: Vital Signs Temperature 97.8 F 11/24/23 13:43 Pulse Rate 107 H 11/24/23 13:43 Respiratory Rate 18 11/24/23 13:43 Blood Pressure 180/124 H 11/24/23 13:43 Pulse Oximetry 100 11/24/23 13:43 Oxygen Delivery Room Air 11/24/23 13:43 Temperature 97.8 F 11/24/23 13:43 Pulse Rate 107 H 11/24/23 13:43 Respiratory Rate 12 11/24/23 13:58 Blood Pressure 180/124 H 11/24/23 13:43 Pulse Oximetry 100 11/24/23 13:58 Oxygen Delivery Room Air 11/24/23 13:43 Discharge Plan Discharge Clinical Impression: Cervicalgia Patient Disposition: Home, Self-Care Condition: Stable Instructions: Antibiotic Form, Acute Neck Pain (ED)
[2023-11-24] MEDS: IBUPROFEN 400 MG TABLET 800 MG PO (14:46)
[2023-11-24] MEDS: ACETAMINOPHEN 500 MG TABLET 1000 MG PO (14:47)
[2023-11-24] MEDS: methocarbamoL 750 MG TABLET PO (14:48)
== END 2023-11-24 14:57 | disposition home or self-care (01) ==
LOC: ANHED 14:35
PROVIDERS: Emergency Provider Emergency Medicine; Referring Provider Family Medicine
DX: M54.2 Cervicalgia (principal); I10 Essential (primary) hypertension; Z87.891 Personal history of nicotine dependence
CPT/HCPCS: 99199; 99283; A9270

== ENCOUNTER 2023-12-24 16:43 | Emergency (ER) | payer OTHER, SELFPAY ==
[2023-12-24] VITALS (14 sets, daily range): BP systolic 133–158; BP diastolic 85–108; PULSE 94–102; RESP 16; TEMP 36.4; O2SAT 98–100
--- NOTE | 2023-12-24 17:00 | ED.GENADULT ---
HPI - General Adult General Chief complaint: Recheck/Abnormal Lab/Rx Stated complaint: high blood pressure Time Seen by Provider: 12/24/23 16:57 Source: patient Mode of arrival: ambulatory Limitations: no limitations History of Present Illness HPI narrative: This is a 33-year-old female with PMH of hypertension who presents to the ED with chief complaint of elevated blood pressure. Reports that she has been dealing with HTN for several months now and was recently told to restart her nifedipine along with losartan by her OB. She has been trying unsuccessfully to get into a PCP for long-term management of her blood pressure. Patient states that for the 1st time today she took losartan and calcium channel danny together this morning. She states that shortly after she started feeling ?off. Reports feeling very woozy and dizzy. Endorses headache and nausea. Denies chest pain, shortness of breath, vision change, speech change, numbness, weakness. Related Data Home Medications Medication Instructions Recorded Confirmed ferrous sulfate 325 mg (65 mg 325 mg PO DAILY 05/04/22 05/04/22 iron) tablet,delayed release vit 168-iron 27 mg-folic 1 cap PO DAILY 05/08/22 05/08/22 acid 800 mcg-omega3 235 mg capsule (One-A-Day -1) Allergies Allergy/AdvReac Type Severity Reaction Status Date / Time No Known Allergies Allergy Verified 12/24/23 16:44 Review of Systems Review of Systems: [facility] systems [facility] Past Medical History Medical History HTN (hypertension) Surgical History Surgical History Hx of tonsillectomy Family History Family History Mother Hypertension Thyroid cancer Social History Social History Smoking status: Former smoker Tobacco type: e-cigarettes/vaping Second hand tobacco smoke exposure: Yes Substance use: never Living arrangements: with family Gender identity (if verbalized by the patient): Female Sexual Orientation (if Verbalized by the Patient): Straight or Heterosexual Spiritual care concerns: No Exam Narrative: GENERAL: Well-appearing, well-nourished, and in no acute distress. HEAD: Normocephalic, atraumatic. EYES: PERRLA and EOMI. ENT: Nares clear, no rhinorrhea or epistaxis. Mucous membranes moist. Oropharynx without tonsillar hypertrophy exudate or other lesions. NECK: Supple. No adenopathy or masses. CHEST: No respiratory distress. Clear to auscultation. No wheezes rales or rhonchi HEART: Regular rate and rhythm. No murmur heard. Normal peripheral pulses. ABDOMEN: Soft, nontender, nondistended, normal active bowel sounds. MSK: Normal range of motion. No edema. SKIN: Warm, dry, no rash. NEURO: Alert and oriented x3. No focal deficits. PSYCH: Normal mood and affect. Course Vital Signs Vital signs: Vital Signs Temperature 97.6 F 12/24/23 16:50 Pulse Rate 102 H 12/24/23 16:50 Respiratory Rate 16 12/24/23 16:50 Blood Pressure 158/108 H 12/24/23 16:50 Pulse Oximetry 98 12/24/23 16:50 Temperature 97.6 F 12/24/23 16:50 Pulse Rate 102 H 12/24/23 16:50 Respiratory Rate 16 12/24/23 16:50 Blood Pressure 158/108 H 12/24/23 16:50 Pulse Oximetry 98 12/24/23 16:50 Medical Decision Making MDM Narrative Medical decision making narrative: This is a 33-year-old female who presents to the ED with chief complaint of elevated blood pressures and feeling dizzy after taking CCB and ARB together for the 1st time this morning. Vitals show slightly elevated blood pressure 158/108. Otherwise normal. Exam is benign. No neurologic deficits. No chest pain or shortness of breath. ECG shows sinus rhythm. Lab work unremarkable. Patient was given symptomatic treatment for headache and nause
--- NOTE | 2023-12-24 17:12 | ECG_ITS ---
SEE SCANNED COPY FOR CONFIRMED REPORT MTDD
[2023-12-24] MEDS: KETOROLAC 15 MG/ML VIAL (*BKC) IV PUSH (17:24)
[2023-12-24] MEDS: ONDANSETRON INJ 4 MG/2 ML VIAL IV PUSH (17:24)
[2023-12-24] MEDS: SODIUM CHLORIDE 0.9% IV 1,000 ML 999 ML IV CONT (17:24)
[2023-12-24 17:28] LABS: Basophils Percent Auto 0.3 % (0.2-1.2); Eosinophils Percent Auto 0.1 % (0-4.4); Hematocrit 37.2 % (37.0-47.0); Hemoglobin 11.5 g/dL (12.0-15.0); Immature Granulocyte Absolute 0.03 K/mm3 (0.00-0.031); Immature Granulocyte Percent A 0.3 % (0-0.5); Lymphocytes Absolute Auto 0.93 K/mm3 (0.9-3.2); Mean Corpuscular HGB Conc 30.9 g/dl (32-36); Mean Corpuscular Hemoglobin 24.8 pg (26-34); Mean Corpuscular Volume 80.2 fl (80-100); Mean Platelet Volume 9.7 fl (7.4-10.4); Monocytes Absolute Auto 0.4 K/mm3 (0.1-0.6); Monocytes Percent Auto 3.4 % (2.6-8.5); Neutrophils Absolute Auto 10.2 K/mm3 (1.3-6.7); Neutrophils Percent Auto 87.9 % (45.5-73.1); Platelet Count Result 305 k/mm3 (150-375); Red Blood Count 4.64 M/mm3 (4.2-5.4); Red Cell Distribution Width 14.6 % (11.5-14.5); White Blood Count 11.6 K/mm3 (4.5-10.0)
[2023-12-24 17:37] LABS: Alanine Aminotransferase 13 U/L (6-35); Albumin Level 5.1 g/dL (3.5-5.1); Alkaline Phosphatase 68 U/L (38-126); Anion Gap 13 mmol/L (4-12); Aspartate Amino Transferase 20 U/L (14-36); Bilirubin,Total 0.5 mg/dL (0.2-1.3); Blood Urea Nitrogen 11 mg/dL (7-17); Carbon Dioxide 20 mmol/L (22-30); Chloride 105 mmol/L (98-107); Estimated CRCL calculation 147 ml/min; Estimated Glomerular Filt Rate > 60; Glucose 98 mg/dL (65-110); Potassium 4.3 mmol/L (3.4-5.0); Sodium 138 mmol/L (137-145)
== END 2023-12-24 18:37 | disposition home or self-care (01) ==
PROVIDERS: Emergency Provider Physician Assistant; PCP Nurse Practitioner Family
DX: R42 Dizziness and giddiness (principal); I10 Essential (primary) hypertension; Z87.891 Personal history of nicotine dependence; I45.10 Unspecified right bundle-branch block; R94.31 Abnormal electrocardiogram [ECG] [EKG]
CPT/HCPCS: 36415; 80053; 85025; 93005; 96361; 96374; 96375; 99284; J1885; J2405; J7030

== ENCOUNTER 2024-02-22 22:18 | Emergency (ER) | payer OTHER, SELFPAY ==
--- NOTE | ~2024-02-22 | XR_ITS ---
Right foot Technique: AP, oblique, and lateral views were obtained. Clinical History: Puncture wound, foreign body Findings: No acute fracture or dislocation is seen. Osseous alignment is anatomic. Joint spaces are p reserved without erosive or degenerative change. Soft tissues are unremarkable. Impression: No radiopaque foreign body seen. Reviewed, dictated and finalized at location . Impression: No radiopaque foreign body seen.
[2024-02-22 22:20] VITALS: BP 169/95; PULSE 95; RESP 14; TEMP 36.6; O2SAT 100
--- NOTE | 2024-02-23 01:22 | ED.LOWEXIN ---
HPI - Extremity Injury (Lower) General Chief Complaint: Extremity Injury, Lower Stated Complaint: stepped on a nail through shoe Time Seen by Provider: 02/22/24 23:40 Source: patient Mode of arrival: ambulatory Limitations: no limitations History of Present Illness HPI Narrative: Patient is a 33 y/o female who presents the ED with report of a puncture wound to her right foot. Patient reports she accidentally stepped on a 1 shannan chao nail that was laying in her grandmother's yard today. Sustained a puncture wound through her flip-flop into the sole of her right foot. Reports pain to right foot. Concerned she needs antibiotics. Tetanus is up-to-date. Denies fevers. Related Data Home Medications Medication Instructions Recorded Confirmed ferrous sulfate 325 mg (65 mg 325 mg PO DAILY 05/04/22 05/04/22 iron) tablet,delayed release vit 168-iron 27 mg-folic 1 cap PO DAILY 05/08/22 05/08/22 acid 800 mcg-omega3 235 mg capsule (One-A-Day -1) Allergies Allergy/AdvReac Type Severity Reaction Status Date / Time No Known Allergies Allergy Verified 12/24/23 16:44 Review of Systems Review of Systems: CONSTITUTIONAL: Denies fever, chills, or sweats. MUSCULOSKELETAL: See HPI NEUROLOGIC: Denies headache, dizziness, numbness, or weakness. All systems reviewed & are unremarkable except as noted in HPI and below PMFSH Past Medical History Medical History HTN (hypertension) Surgical History Surgical History Hx of tonsillectomy Family History Family History Mother Hypertension Thyroid cancer Social History Social History Smoking status: Former smoker Tobacco type: e-cigarettes/vaping Second hand tobacco smoke exposure: Yes Substance use: never Living arrangements: with family Gender identity (if verbalized by the patient): Female Sexual Orientation (if Verbalized by the Patient): Straight or Heterosexual Spiritual care concerns: No Exam Narrative: GENERAL: Well appearing, obese with BMI of 32.3, non-toxic, in no acute distress. HEAD: Normocephalic, atraumatic. RESPIRATORY: Airway patent, respirations nonlabored. CARDIOVASCULAR: Regular rate and rhythm. Pedal pulses intact. MUSCULOSKELETAL: Moves all extremities. No gross deformities. SKIN: Warm, dry, normal color. Small 0.25cm puncture wound to sole of R foot, no active bleeding, no obvious FB. Focal TTP. No drainage. NEURO: A&O X3. Speech clear. Cranial nerves II-XII grossly intact. Steady gait. No ataxic movements. PSYCHIATRIC: Appropriate mood and affect. Normal interaction. Course Vital Signs Vital signs: Vital Signs Temperature 97.9 F 02/22/24 22:20 Pulse Rate 95 02/22/24 22:20 Respiratory Rate 14 02/22/24 22:20 Blood Pressure 169/95 H 02/22/24 22:20 Pulse Oximetry 100 02/22/24 22:20 Oxygen Delivery Room Air 02/22/24 22:20 Temperature 97.9 F 02/22/24 22:20 Pulse Rate 95 02/22/24 22:20 Respiratory Rate 14 02/22/24 22:20 Blood Pressure 169/95 H 02/22/24 22:20 Pulse Oximetry 100 02/22/24 22:20 Oxygen Delivery Room Air 02/22/24 22:20 MDM - Extremity Injury (Lower) MDM Narrative Medical decision making narrative: patient presented to ED status post puncture wound to right foot from shannan nail. Tetanus up-to-date. Neurovascularly intact. X-ray interpreted by myself showing possible very small foreign body on lateral view, though does not appear significantly radiopaque. Discussed this with patient. I do not see any obvious foreign bodies on repeat examinations/exploration. Wound was thoroughly irrigated. Tetanus is up-to-date. Patient will be started on ciprofloxacin and Keflex per [employer] puncture wound
[2024-02-23] MEDS: CIPROFLOXACIN 500 MG TAB PO (01:24)
[2024-02-23] MEDS: CEPHALEXIN 500 MG CAPSULE PO (01:24)
== END 2024-02-23 02:02 | disposition home or self-care (01) ==
PROVIDERS: Emergency Provider Physician Assistant
DX: S91.331A Puncture wound without foreign body, right foot, initial encounter (principal); I10 Essential (primary) hypertension; Z87.891 Personal history of nicotine dependence; W45.0XXA Nail entering through skin, initial encounter
CPT/HCPCS: 73630; 99283; A9270